=== PATIENT | female | born 1960 | race Caucasian/White ===

== ENCOUNTER 2016-06-16 14:10 | Inpatient (IN) | payer MEDICAID ==
[~2016-06-16] VITALS: Ht 165.1 cm; Wt 52.2 kg
[~2016-06-16 14:10] MED LIST: CARI-277 PO; GABA250S2 PO; LORA1SOL PO; LOS50T PO; METO50TA7 PO; MORP1CAP31 PO; NOR10T PO; ONDA4TAB5 PO; SERT-274 PO; SUMA1SPR2 PO
[2016-06-16 14:44] LABS: Basophils # (auto) 0 uL; Eosinophils # (auto) 0 uL; Hematocrit 50.8 % (36.0-46.0); Hemoglobin 16.8 g/dL (12.2-16.2); Lymphocytes # (auto) 0.6 uL; Lymphocytes % (auto) 6.9 % (10.0-50.0); Mean Corpuscular Hemoglobin 30.9 pg (28.0-32.0); Mean Corpuscular Volume 93.8 fL (80.0-100.0); Monocytes # (auto) 0 uL; Monocytes % (auto) 0.4 % (0.0-12.0); Neutrophils # (auto) 8.6 uL; Neutrophils % (auto) 92.7 % (37.0-80.0); Platelet Count (auto) 364 10^3/uL (140-450); Red Cell Distribution Width 12.8 % (11.6-16.0); White Blood Cell 9.3 10^3/uL (4.4-10.8)
[2016-06-16 15:06] LABS: Albumin 4.3 g/dL (3.4-5.0); BUN/Creatinine Ratio 11.8; Bilirubin, Total 0.5 mg/dL (0.2-1.0); Calcium 9.6 mg/dL (8.5-10.1); Total Protein 7.9 g/dL (6.4-8.2)
[2016-06-16] MEDS ORDERED: ONDANSETRON HCL 4 MG/2 ML VIAL IV ONE ×2 (20:00→23:15)
[2016-06-16] MEDS ORDERED: KETOROLAC TROMETH 30 MG/ML 1ML VIAL IV ONE (20:00)
[2016-06-16] MEDS ORDERED: SODIUM CHLORIDE 0.9% 1,000 ML IV ONE (20:00)
[2016-06-16] MEDS ORDERED: SODIUM CHLORIDE 0.9% 1,000 ML IVB ONE (20:15)
[2016-06-16 20:50] LABS: Magnesium 2.1 mg/dL (1.6-2.6)
[2016-06-16 20:53] LABS: INR 1.07 (0.9-1.15); Partial Thromboplastin Time 25.4 sec (22.64-33.71)
[2016-06-16] MEDS ORDERED: MORPHINE SULF INJ 2 MG/ML SYRINGE 1ML IV ONE (21:30)
[2016-06-16] MEDS ORDERED: PROMETHAZINE HCL 25 MG/ML 1ML IV ONE (21:30)
[2016-06-16] MEDS ORDERED: LABETALOL HCL 5 MG/ML 4ML SYRINGE IV ONE (21:45)
[2016-06-16 23:05] LABS: Urine Bilirubin Negative (Negative); Urine Color Colorless (Yellow); Urine Glucose TRACE mg/dL (Normal); Urine Hyaline Cast FEW /lpf (0 - 2); Urine Ketone Negative (Negative); Urine Nitrite Negative (Negative); Urine RBC 11 /hpf (0 - 4); Urine Urobilinogen Normal (Negative)
[2016-06-16 23:07] LABS: Urine Blood 2+ /uL (Negative)
[2016-06-16] MEDS ORDERED: HYDROmorphone HCL 2 MG/ML VL IV ONE (23:15)
[2016-06-16] MEDS ORDERED: NITROGLYCERIN 0.4 MG SL TAB SL PRN (23:30)
[2016-06-16] MEDS ORDERED: MORPHINE SULF INJ 2 MG/ML SYRINGE 1ML IV PRN (23:30)
[2016-06-17] MEDS: cloNIDine HCL 0.1 MG TAB PO PRN
[2016-06-17 00:30] VITALS: BP 165/83
[2016-06-17] MEDS: FAMOTIDINE (10MG/ML) 2ML VL IV SCH ×3 (01:39→23:56)
[2016-06-17] MEDS: SODIUM CHLORIDE 0.9% 1,000 ML IV SCH ×4 (01:48→23:56)
[2016-06-17] MEDS: ONDANSETRON HCL 4 MG/2 ML VIAL IV PRN ×5 (03:24→20:32)
[2016-06-17] MEDS: MORPHINE SULF INJ 2 MG/ML SYRINGE 1ML IV PRN ×5 (03:24→20:33)
[2016-06-17] MEDS ORDERED: LOPERAMIDE HCL 2 MG CAP PO ONE (04:00)
[2016-06-17 05:05] VITALS: BP 126/74
[2016-06-17] MEDS: GABAPENTIN 300 MG CAP PO SCH ×3 (06:03→22:18)
[2016-06-17 06:19] LABS: Basophils # (auto) 0 uL; Basophils % (auto) 0.4 % (0.0-2.0); Eosinophils # (auto) 0 uL; Hematocrit 41.3 % (36.0-46.0); Hemoglobin 13.8 g/dL (12.2-16.2); Lymphocytes # (auto) 1.4 uL; Lymphocytes % (auto) 13.1 % (10.0-50.0); Mean Corpuscular Hemoglobin 31.4 pg (28.0-32.0); Mean Corpuscular Hgb Conc. 33.4 g/dL (32.0-36.0); Mean Corpuscular Volume 93.8 fL (80.0-100.0); Mean Platelet Volume 7.2 fL (7.4-10.4); Monocytes # (auto) 0.6 uL; Monocytes % (auto) 5.7 % (0.0-12.0); Neutrophils # (auto) 8.5 uL; Neutrophils % (auto) 80.8 % (37.0-80.0); Platelet Count (auto) 290 10^3/uL (140-450); Red Cell Distribution Width 12.6 % (11.6-16.0); White Blood Cell 10.5 10^3/uL (4.4-10.8)
[2016-06-17 06:42] LABS: Albumin 3.5 g/dL (3.4-5.0); BUN/Creatinine Ratio 13.5; Bilirubin, Total 0.5 mg/dL (0.2-1.0); Calcium 8.1 mg/dL (8.5-10.1); Potassium 3.5 mmol/L (3.5-5.1); Total Protein 6.5 g/dL (6.4-8.2)
[2016-06-17] MEDS ORDERED: SERT-160 PO (07:38)
[2016-06-17] MEDS ORDERED: LOSA100T27 PO ×2 (07:38→07:59)
[2016-06-17] MEDS ORDERED: PHEN95TA12 PO (07:51)
[2016-06-17] MEDS ORDERED: DIME50TA49 PO (07:51)
[2016-06-17] MEDS ORDERED: ALPR0.5T7 PO (07:59)
[2016-06-17] MEDS ORDERED: OMEP20CA5 OR (07:59)
[2016-06-17] MEDS ORDERED: MORP30TA PO (07:59)
[2016-06-17] MEDS ORDERED: PERCOT PO (07:59)
[2016-06-17] MEDS: LOPERAMIDE HCL 2 MG CAP PO PRN (08:13)
[2016-06-17 09:00] VITALS: BP 155/90
[2016-06-17] MEDS: SERTRALINE HCL 50 MG TAB PO SCH (09:59)
[2016-06-17] MEDS: METOPROLOL SUCCINATE XL 50 MG TAB PO SCH (10:00)
[2016-06-17] MEDS: LOSARTAN POTASSIUM 50 MG TAB PO SCH (10:00)
[2016-06-17] MEDS: ENOXAPARIN SOD 40 MG/0.4 ML SYRINGE SC SCH (10:01)
[2016-06-17 13:00] VITALS: BP 135/85
[2016-06-17] MEDS: metroNIDAZOLE 500 MG TAB PO SCH ×2 (13:42→22:18)
[2016-06-17 17:00] VITALS: BP 142/89
[2016-06-17 21:51] VITALS: BP 146/97
[2016-06-17] MEDS: ZOLPIDEM TARTRATE 5 MG TAB PO PRN (22:19)
[2016-06-18] MEDS: MORPHINE SULF INJ 2 MG/ML SYRINGE 1ML IV PRN ×5 (02:00→20:54)
[2016-06-18] MEDS: ONDANSETRON HCL 4 MG/2 ML VIAL IV PRN ×5 (02:00→20:54)
[2016-06-18 05:00] VITALS: BP_SYST 127; BP_SYST 135; BP_DIAS 71; BP_DIAS 88
[2016-06-18] MEDS: GABAPENTIN 300 MG CAP PO SCH ×3 (06:10→22:06)
[2016-06-18] MEDS: metroNIDAZOLE 500 MG TAB PO SCH ×3 (06:10→22:06)
[2016-06-18] MEDS: SODIUM CHLORIDE 0.9% 1,000 ML IV SCH ×3 (07:24→23:33)
[2016-06-18 08:33] LABS: Basophils # (auto) 0 uL; Basophils % (auto) 0.5 % (0.0-2.0); Eosinophils # (auto) 0 uL; Eosinophils % (auto) 0.7 % (0.0-7.0); Hematocrit 39.6 % (36.0-46.0); Hemoglobin 13.1 g/dL (12.2-16.2); Lymphocytes # (auto) 1.8 uL; Lymphocytes % (auto) 25.4 % (10.0-50.0); Mean Corpuscular Hgb Conc. 32.9 g/dL (32.0-36.0); Mean Corpuscular Volume 94.2 fL (80.0-100.0); Mean Platelet Volume 7.1 fL (7.4-10.4); Monocytes # (auto) 0.5 uL; Monocytes % (auto) 6.6 % (0.0-12.0); Neutrophils # (auto) 4.7 uL; Neutrophils % (auto) 66.8 % (37.0-80.0); Platelet Count (auto) 242 10^3/uL (140-450); Red Cell Distribution Width 13.1 % (11.6-16.0); White Blood Cell 7.1 10^3/uL (4.4-10.8)
[2016-06-18 08:43] LABS: Potassium 3.2 mmol/L (3.5-5.1)
[2016-06-18 08:47] LABS: BUN/Creatinine Ratio 10.6; Calcium 7.8 mg/dL (8.5-10.1); Magnesium 1.7 mg/dL (1.6-2.6)
[2016-06-18 08:57] LABS: INR 1.17 (0.9-1.15)
[2016-06-18 09:00] VITALS: BP 150/100
[2016-06-18] MEDS: METOPROLOL SUCCINATE XL 50 MG TAB PO SCH (09:08)
[2016-06-18] MEDS: LOPERAMIDE HCL 2 MG CAP PO PRN ×2 (09:08→16:01)
[2016-06-18] MEDS: SERTRALINE HCL 50 MG TAB PO SCH (09:09)
[2016-06-18] MEDS: ENOXAPARIN SOD 40 MG/0.4 ML SYRINGE SC SCH (09:09)
[2016-06-18] MEDS: LOSARTAN POTASSIUM 50 MG TAB PO SCH (09:09)
[2016-06-18] MEDS ORDERED: POTASSIUM CHLORIDE 8 MEQ TAB PO ONE (12:15)
[2016-06-18] MEDS ORDERED: DEXTROSE (50%) 50ML SYRG IV PRN (12:15)
[2016-06-18 13:00] VITALS: BP 164/98
[2016-06-18] MEDS: FAMOTIDINE (10MG/ML) 2ML VL IV SCH ×2 (15:57→23:30)
[2016-06-18 17:00] VITALS: BP 169/100
[2016-06-18] MEDS: ACCU-CHEK COMFORT CURVE STRIP VI SCH ×2 (17:00→22:00)
[2016-06-18] MEDS: InsuLIN REG 1unit/0.01ml Soln (100units/ml) SC SCH ×2 (17:00→22:00)
[2016-06-18] MEDS: cloNIDine HCL 0.1 MG TAB PO PRN (17:45)
[2016-06-18 21:50] VITALS: BP 151/98
[2016-06-18] MEDS ORDERED: LOPERAMIDE HCL 2 MG CAP PO PRN (22:00)
[2016-06-18] MEDS: ZOLPIDEM TARTRATE 5 MG TAB PO PRN (22:06)
[2016-06-19] MEDS: MORPHINE SULF INJ 2 MG/ML SYRINGE 1ML IV PRN ×5 (04:03→23:31)
[2016-06-19] MEDS: ONDANSETRON HCL 4 MG/2 ML VIAL IV PRN ×5 (04:03→23:31)
[2016-06-19 04:51] VITALS: BP 165/102
[2016-06-19] MEDS: cloNIDine HCL 0.1 MG TAB PO PRN ×2 (05:00→16:29)
[2016-06-19] MEDS: metroNIDAZOLE 500 MG TAB PO SCH ×3 (06:04→21:38)
[2016-06-19] MEDS: GABAPENTIN 300 MG CAP PO SCH ×3 (06:04→21:38)
[2016-06-19] MEDS: ACCU-CHEK COMFORT CURVE STRIP VI SCH ×2 (06:41→11:30)
[2016-06-19] MEDS: InsuLIN REG 1unit/0.01ml Soln (100units/ml) SC SCH ×2 (06:41→11:30)
[2016-06-19 07:20] LABS: Basophils # (auto) 0 uL; Basophils % (auto) 0.8 % (0.0-2.0); Eosinophils # (auto) 0.1 uL; Eosinophils % (auto) 1.3 % (0.0-7.0); Hematocrit 35.5 % (36.0-46.0); Hemoglobin 11.8 g/dL (12.2-16.2); Lymphocytes # (auto) 1.8 uL; Lymphocytes % (auto) 32.5 % (10.0-50.0); Mean Corpuscular Hemoglobin 31.1 pg (28.0-32.0); Mean Corpuscular Hgb Conc. 33.1 g/dL (32.0-36.0); Mean Corpuscular Volume 94.1 fL (80.0-100.0); Mean Platelet Volume 6.7 fL (7.4-10.4); Monocytes # (auto) 0.4 uL; Monocytes % (auto) 7.7 % (0.0-12.0); Neutrophils # (auto) 3.1 uL; Neutrophils % (auto) 57.7 % (37.0-80.0); Platelet Count (auto) 235 10^3/uL (140-450); Red Cell Distribution Width 12.9 % (11.6-16.0); White Blood Cell 5.4 10^3/uL (4.4-10.8)
[2016-06-19 07:26] LABS: Albumin 2.9 g/dL (3.4-5.0); BUN/Creatinine Ratio 7.5; Calcium 7.6 mg/dL (8.5-10.1)
[2016-06-19 07:29] LABS: Bilirubin, Total 0.6 mg/dL (0.2-1.0); Total Protein 5.5 g/dL (6.4-8.2)
[2016-06-19] MEDS: SODIUM CHLORIDE 0.9% 1,000 ML IV SCH (08:37)
[2016-06-19] MEDS: HYDROcodone-ACET 5/325MG TAB PO PRN ×2 (08:37→16:29)
[2016-06-19 09:00] VITALS: BP 149/89
[2016-06-19] MEDS: ENOXAPARIN SOD 40 MG/0.4 ML SYRINGE SC SCH (10:02)
[2016-06-19] MEDS: SERTRALINE HCL 50 MG TAB PO SCH (10:03)
[2016-06-19] MEDS: METOPROLOL SUCCINATE XL 50 MG TAB PO SCH (10:07)
[2016-06-19] MEDS: LOSARTAN POTASSIUM 50 MG TAB PO SCH (10:08)
[2016-06-19 13:00] VITALS: BP 140/89
[2016-06-19] MEDS ORDERED: POTASSIUM CHL 20MEQ/100ML 100 ML IV ONE (13:00)
[2016-06-19] MEDS ORDERED: PANTOPRAZOLE SODIUM 40 MG/10 ML VIAL IV ONE (13:00)
[2016-06-19] MEDS: SOD CHL 0.9%/ KCL 20MEQ 1,000 ML IV SCH ×2 (16:27→21:20)
[2016-06-19 17:00] VITALS: BP 188/103
[2016-06-19 18:48] LABS: Hematocrit 41.7 % (36.0-46.0); Hemoglobin 13.7 g/dL (12.2-16.2)
[2016-06-19] MEDS: ZOLPIDEM TARTRATE 5 MG TAB PO PRN (20:11)
[2016-06-19 22:00] VITALS: BP 153/93
[2016-06-20 00:57] LABS: Hemoglobin 12.6 g/dL (12.2-16.2)
[2016-06-20] MEDS: ONDANSETRON HCL 4 MG/2 ML VIAL IV PRN ×4 (04:25→18:15)
[2016-06-20] MEDS: MORPHINE SULF INJ 2 MG/ML SYRINGE 1ML IV PRN ×5 (04:25→23:48)
[2016-06-20 05:00] VITALS: BP 160/118
[2016-06-20] MEDS: SOD CHL 0.9%/ KCL 20MEQ 1,000 ML IV SCH (05:40)
[2016-06-20 05:56] LABS: Basophils # (auto) 0 uL; Basophils % (auto) 0.7 % (0.0-2.0); Eosinophils # (auto) 0.1 uL; Eosinophils % (auto) 2.3 % (0.0-7.0); Hematocrit 38.5 % (36.0-46.0); Hemoglobin 12.8 g/dL (12.2-16.2); Lymphocytes # (auto) 1.9 uL; Lymphocytes % (auto) 30.9 % (10.0-50.0); Mean Corpuscular Hemoglobin 31.3 pg (28.0-32.0); Mean Corpuscular Hgb Conc. 33.2 g/dL (32.0-36.0); Mean Corpuscular Volume 94.2 fL (80.0-100.0); Mean Platelet Volume 7.3 fL (7.4-10.4); Monocytes # (auto) 0.5 uL; Monocytes % (auto) 7.6 % (0.0-12.0); Neutrophils # (auto) 3.6 uL; Neutrophils % (auto) 58.5 % (37.0-80.0); Platelet Count (auto) 229 10^3/uL (140-450); Red Cell Distribution Width 12.8 % (11.6-16.0); White Blood Cell 6.2 10^3/uL (4.4-10.8)
[2016-06-20 05:58] LABS: Albumin 3.4 g/dL (3.4-5.0); Calcium 8.2 mg/dL (8.5-10.1); Potassium 3.1 mmol/L (3.5-5.1)
[2016-06-20] MEDS: metroNIDAZOLE 500 MG TAB PO SCH ×3 (05:59→21:43)
[2016-06-20] MEDS: GABAPENTIN 300 MG CAP PO SCH ×3 (05:59→21:43)
[2016-06-20 06:00] LABS: BUN/Creatinine Ratio 10.4
[2016-06-20] MEDS: cloNIDine HCL 0.1 MG TAB PO PRN (06:01)
[2016-06-20 06:03] LABS: Bilirubin, Total 0.5 mg/dL (0.2-1.0); Total Protein 6.1 g/dL (6.4-8.2)
[2016-06-20 08:22] VITALS: BP 154/93
[2016-06-20] MEDS: SERTRALINE HCL 50 MG TAB PO SCH (08:37)
[2016-06-20] MEDS: LOSARTAN POTASSIUM 50 MG TAB PO SCH (08:38)
[2016-06-20] MEDS: METOPROLOL SUCCINATE XL 50 MG TAB PO SCH (08:38)
[2016-06-20] MEDS ORDERED: PANTOPRAZOLE SODIUM 40 MG/10 ML VIAL IV SCH (10:00)
[2016-06-20] MEDS: HYDROcodone-ACET 5/325MG TAB PO PRN (11:01)
[2016-06-20] MEDS: POTASSIUM CHL 20MEQ/100ML 100 ML IV SCH ×3 (13:15→15:33)
[2016-06-20 14:10] VITALS: BP 162/98
[2016-06-20 17:00] VITALS: BP 178/98
[2016-06-20] MEDS ORDERED: POTASSIUM CHL 20 Meq TABLET PO ONE ×2 (17:30→17:45)
[2016-06-20] MEDS: VANCOMYCIN HCL 125MG/5ML ORAL SOL PO SCH ×2 (18:00→21:42)
[2016-06-20] MEDS: ZOLPIDEM TARTRATE 5 MG TAB PO PRN (21:43)
[2016-06-20 22:00] VITALS: BP 142/92
[2016-06-21] MEDS: MORPHINE SULF INJ 2 MG/ML SYRINGE 1ML IV PRN (04:32)
[2016-06-21 05:30] VITALS: BP 170/97
[2016-06-21] MEDS: GABAPENTIN 300 MG CAP PO SCH (05:47)
[2016-06-21] MEDS: metroNIDAZOLE 500 MG TAB PO SCH (05:47)
[2016-06-21] MEDS: VANCOMYCIN HCL 125MG/5ML ORAL SOL PO SCH (05:47)
[2016-06-21] MEDS: cloNIDine HCL 0.1 MG TAB PO PRN (06:19)
[2016-06-21 07:43] LABS: Potassium 3.2 mmol/L (3.5-5.1)
[2016-06-21 09:00] VITALS: BP 159/99
[2016-06-21] MEDS ORDERED: POTASSIUM CHL 20 Meq TABLET PO SCH (11:30)
[2016-06-21 11:32] VITALS: BP 170/97
[2016-06-21 13:00] VITALS: BP 143/94
== END 2016-06-21 13:25 | disposition home or self-care (01) | DRG 248 ==
LOC: EDBD 14:10 → ER 14:17 → WEST WING 14:18
PROVIDERS: ADMIT Family Medicine; ATTEND Internal Medicine Pulmonary Disease
DX: A04.7 Enterocolitis due to Clostridium difficile (principal); E11.21 Type 2 diabetes mellitus with diabetic nephropathy; E11.42 Type 2 diabetes mellitus with diabetic polyneuropathy; K56.7 Ileus, unspecified; E86.0 Dehydration; E11.22 Type 2 diabetes mellitus with diabetic chronic kidney disease; I12.9 Hypertensive chronic kidney disease with stage 1 through stage 4 chronic kidney disease, or unspecified chronic kidney disease; E87.6 Hypokalemia; N18.2 Chronic kidney disease, stage 2 (mild); M54.5 Low back pain; F17.210 Nicotine dependence, cigarettes, uncomplicated; F32.9 Major depressive disorder, single episode, unspecified; D64.9 Anemia, unspecified; Z90.710 Acquired absence of both cervix and uterus; Z85.820 Personal history of malignant melanoma of skin
CPT/HCPCS: 36415; 71010; 74176; 80048; 80051; 80053; 81001; 82150; 82270; 82378; 83036; 83690; 83735; 84484; 85014; 85018; 85025; 85045; 85610; 85652; 85730; 86141; 86850; 86900; 86901; 87086; 87493; 93005; 96361; 96374; 96375; 96376; C9113; J1885; J2405; J3480; J3490

== ENCOUNTER 2016-10-05 18:25 | Inpatient (IN) | payer MEDICAID ==
[~2016-10-05] VITALS: Ht 170.2 cm; Wt 47.0 kg
[~2016-10-05 18:25] MED LIST changes: +ALPR0.5T7 PO; +DIME50TA49 PO; -LOS50T PO; +LOSA100T27 PO; +MORP30TA PO; +OMEP20CA5 OR; +PERCOT PO; +PHEN95TA12 PO; +SERT-160 PO; -SERT-274 PO
[2016-10-05 19:48] LABS: Basophils # (auto) 0 uL; Basophils % (auto) 0.2 % (0.0-2.0); Eosinophils # (auto) 0 uL; Hematocrit 52.8 % (36.0-46.0); Hemoglobin 17.3 g/dL (12.2-16.2); Lymphocytes # (auto) 0.5 uL; Lymphocytes % (auto) 7.8 % (10.0-50.0); Mean Corpuscular Hemoglobin 30.5 pg (28.0-32.0); Mean Corpuscular Hgb Conc. 32.7 g/dL (32.0-36.0); Mean Corpuscular Volume 93.2 fL (80.0-100.0); Mean Platelet Volume 7.6 fL (7.4-10.4); Monocytes # (auto) 0.2 uL; Neutrophils # (auto) 6.2 uL; Platelet Count (auto) 350 10^3/uL (140-450); Red Cell Distribution Width 12.8 % (11.6-16.0); White Blood Cell 6.9 10^3/uL (4.4-10.8)
[2016-10-05 20:00] LABS: Albumin 4.3 g/dL (3.4-5.0); Calcium 9.1 mg/dL (8.5-10.1); Magnesium 2.1 mg/dL (1.6-2.6); Potassium 3.5 mmol/L (3.5-5.1)
[2016-10-05 20:08] LABS: Bilirubin, Total 0.5 mg/dL (0.2-1.0); Total Protein 8.7 g/dL (6.4-8.2)
[2016-10-05 20:42] LABS: BUN/Creatinine Ratio 8.5
[2016-10-05] MEDS ORDERED: SODIUM CHLORIDE 0.9% 1,000 ML IVB ONE (20:52)
[2016-10-05] MEDS ORDERED: ONDANSETRON HCL 4 MG/2 ML VIAL IV ONE (21:00)
[2016-10-05] MEDS ORDERED: PANTOPRAZOLE SODIUM 40 MG/10 ML VIAL IV ONE (21:00)
[2016-10-05] MEDS ORDERED: ASPirin 81 mg TAB PO ONE (21:00)
[2016-10-05] MEDS ORDERED: MORPHINE SULFATE 4 MG/ML SYRG IV ONE (21:00)
[2016-10-05] MEDS ORDERED: cloNIDine HCL 0.1 MG TAB PO ONE (21:30)
[2016-10-05 21:40] LABS: Amylase 67 U/L (25-115)
[2016-10-05] MEDS ORDERED: METOCLOPRAMIDE HCL 5MG/ml INJ 2ml VIAL IV ONE (22:15)
[2016-10-05 22:21] LABS: B-Type Natriuretic Peptide 424.84 pg/mL (0-100)
[2016-10-06] MEDS ORDERED: ACETAMINOPHEN 325 MG TAB PO PRN (00:15)
[2016-10-06] MEDS ORDERED: NITROGLYCERIN 0.4 MG SL TAB SL PRN (00:15)
[2016-10-06] MEDS ORDERED: MORPHINE SULF INJ 2 MG/ML SYRINGE 1ML IV PRN (00:15)
[2016-10-06] MEDS: SODIUM CHLORIDE 0.9% 1,000 ML IV SCH ×2 (00:41→16:39)
[2016-10-06] MEDS ORDERED: ENOXAPARIN SOD 60 MG/0.6 ML SYRINGE SC ONE (00:45)
[2016-10-06 01:30] VITALS: BP 174/105
[2016-10-06] MEDS: ONDANSETRON HCL 4 MG/2 ML VIAL IV PRN ×4 (02:34→17:26)
[2016-10-06] MEDS: HYDROcodone-ACET 5/325MG TAB PO PRN ×5 (02:35→20:09)
[2016-10-06 05:02] VITALS: BP 123/92
[2016-10-06 10:09] VITALS: BP 118/75
[2016-10-06] MEDS: ENOXAPARIN SOD 40 MG/0.4 ML SYRINGE SC SCH (11:11)
[2016-10-06] MEDS: SERTRALINE HCL 50 MG TAB PO SCH (11:12)
[2016-10-06] MEDS: ASPirin 81 mg TAB PO SCH (11:14)
[2016-10-06] MEDS: LOSARTAN POTASSIUM 50 MG TAB PO SCH (11:14)
[2016-10-06 13:00] VITALS: BP 122/78
[2016-10-06 16:01] LABS: Urine Bilirubin Negative (Negative); Urine Blood 2+ /uL (Negative); Urine Color Yellow (Yellow); Urine Glucose Normal (Normal); Urine Hyaline Cast MOD /lpf (0 - 2); Urine Ketone TRACE (Negative); Urine Mucus FEW (None Seen); Urine Nitrite Negative (Negative); Urine RBC 22 /hpf (0 - 4); Urine Squamous Epithelial Cell FEW /hpf (<5); Urine Urobilinogen Normal (Negative)
[2016-10-06 16:49] VITALS: BP 115/78
[2016-10-06] MEDS: TEMAZEPAM 15 MG CAP PO PRN (21:42)
[2016-10-06 22:00] VITALS: BP 130/91
[2016-10-07] VITALS (9 sets, daily range): BP systolic 134–179; BP diastolic 82–106
[2016-10-07] MEDS: ONDANSETRON HCL 4 MG/2 ML VIAL IV PRN ×5 (01:09→19:50)
[2016-10-07] MEDS: HYDROcodone-ACET 5/325MG TAB PO PRN ×5 (01:10→20:54)
[2016-10-07 05:51] LABS: Basophils # (auto) 0 uL; Basophils % (auto) 0.5 % (0.0-2.0); Eosinophils # (auto) 0 uL; Eosinophils % (auto) 0.4 % (0.0-7.0); Hemoglobin 15.8 g/dL (12.2-16.2); Lymphocytes # (auto) 2.7 uL; Lymphocytes % (auto) 36.9 % (10.0-50.0); Mean Corpuscular Hemoglobin 30.9 pg (28.0-32.0); Mean Corpuscular Hgb Conc. 32.8 g/dL (32.0-36.0); Mean Platelet Volume 7.4 fL (7.4-10.4); Monocytes # (auto) 0.7 uL; Neutrophils # (auto) 3.8 uL; Neutrophils % (auto) 52.2 % (37.0-80.0); Platelet Count (auto) 280 10^3/uL (140-450); Red Cell Distribution Width 12.9 % (11.6-16.0); White Blood Cell 7.2 10^3/uL (4.4-10.8)
[2016-10-07 06:07] LABS: Albumin 3.4 g/dL (3.4-5.0); Potassium 3.7 mmol/L (3.5-5.1)
[2016-10-07 06:10] LABS: BUN/Creatinine Ratio 19.5; Calcium 8.5 mg/dL (8.5-10.1); Magnesium 2.2 mg/dL (1.6-2.6)
[2016-10-07 06:12] LABS: Bilirubin, Total 0.5 mg/dL (0.2-1.0); Total Protein 6.6 g/dL (6.4-8.2)
[2016-10-07] MEDS ORDERED: ADENOSINE 39 MG in GIVE UN-DILUTED 0 ML IV STA (08:42)
[2016-10-07] MEDS: SODIUM CHLORIDE 0.9% 1,000 ML IV SCH (09:51)
[2016-10-07] MEDS: ASPirin 81 mg TAB PO SCH (09:52)
[2016-10-07] MEDS: ENOXAPARIN SOD 40 MG/0.4 ML SYRINGE SC SCH (09:52)
[2016-10-07] MEDS: SERTRALINE HCL 50 MG TAB PO SCH (09:52)
[2016-10-07] MEDS: LOSARTAN POTASSIUM 50 MG TAB PO SCH (09:53)
[2016-10-07] MEDS ORDERED: PANTOPRAZOLE 40 MG TAB PO ONE (12:15)
[2016-10-07] MEDS ORDERED: METOCLOPRAMIDE HCL 10 MG TAB PO PRN (12:15)
[2016-10-07] MEDS: PROCHLORPERAZINE EDISYLATE 5 MG/ML 2ML VIAL IV PRN ×2 (13:06→18:30)
[2016-10-07] MEDS ORDERED: IOHEXOL 300 MG/ML 100ML BOTTLE IJ ONE (13:43)
[2016-10-07] MEDS: TEMAZEPAM 15 MG CAP PO PRN (22:43)
[2016-10-07] MEDS ORDERED: KETOROLAC TROMETH 30 MG/ML 1ML VIAL IV ONE (22:45)
[2016-10-07] MEDS ORDERED: cloNIDine HCL 0.1 MG TAB PO PRN (22:45)
[2016-10-08] MEDS: SODIUM CHLORIDE 0.9% 1,000 ML IV SCH (03:51)
[2016-10-08] MEDS: ONDANSETRON HCL 4 MG/2 ML VIAL IV PRN ×3 (03:51→13:32)
[2016-10-08] MEDS: HYDROcodone-ACET 5/325MG TAB PO PRN ×3 (03:52→15:03)
[2016-10-08 04:56] VITALS: BP 115/91
[2016-10-08 08:00] VITALS: BP 136/86
[2016-10-08 08:59] VITALS: BP 136/86
[2016-10-08] MEDS: ENOXAPARIN SOD 40 MG/0.4 ML SYRINGE SC SCH (09:46)
[2016-10-08] MEDS: ASPirin 81 mg TAB PO SCH (09:47)
[2016-10-08] MEDS: SERTRALINE HCL 50 MG TAB PO SCH (09:47)
[2016-10-08] MEDS: LOSARTAN POTASSIUM 50 MG TAB PO SCH (09:48)
[2016-10-08] MEDS ORDERED: PANTOPRAZOLE 40 MG TAB PO SCH (10:00)
[2016-10-08 13:02] VITALS: BP 124/87
[2016-10-08] MEDS ORDERED: ASPI81CH43 PO (14:52)
[2016-10-08 15:20] VITALS: BP 136/86
[2016-10-08] MEDS: PROCHLORPERAZINE EDISYLATE 5 MG/ML 2ML VIAL IV PRN (17:03)
[2016-10-08 17:10] VITALS: BP 116/82
== END 2016-10-08 17:45 | disposition home or self-care (01) | DRG 251 ==
LOC: EDBD 18:25 → ER 18:25 → EDUNIT# 18:26 → TELE 18:26 → TELE-WESTW 10-06 01:06
PROVIDERS: ADMIT Nurse Practitioner; ATTEND Internal Medicine
DX: R10.13 Epigastric pain (principal); K83.8 Other specified diseases of biliary tract; I10 Essential (primary) hypertension; R07.89 Other chest pain; F41.9 Anxiety disorder, unspecified; R11.2 Nausea with vomiting, unspecified; K21.9 Gastro-esophageal reflux disease without esophagitis; G89.4 Chronic pain syndrome; F17.210 Nicotine dependence, cigarettes, uncomplicated; F41.1 Generalized anxiety disorder; I49.1 Atrial premature depolarization; R74.8 Abnormal levels of other serum enzymes; R73.9 Hyperglycemia, unspecified; F12.10 Cannabis abuse, uncomplicated; Z71.89 Other specified counseling; Z71.6 Tobacco abuse counseling; Z98.51 Tubal ligation status
CPT/HCPCS: 36415; 71010; 74177; 80053; 80061; 80307; 81001; 82150; 83036; 83690; 83735; 83880; 84484; 85025; 93005; 93306; 94761; 96361; 96372; 96374; 96375; C9113; J0153; J2405

== ENCOUNTER 2016-10-20 13:43 | Inpatient (IN) | payer MEDICAID ==
[~2016-10-20] VITALS: Ht 170.2 cm; Wt 43.2 kg
[~2016-10-20 13:43] MED LIST changes: +ASPI81CH43 PO
[2016-10-20] MEDS ORDERED: MORPHINE SULF INJ 2 MG/ML SYRINGE 1ML ONE (15:52)
[2016-10-20] MEDS ORDERED: ONDANSETRON HCL 4 MG/2 ML VIAL ONE (15:52)
[2016-10-20] MEDS ORDERED: ONDANSETRON HCL 4 MG/2 ML VIAL IV ONE ×2 (16:15→23:45)
[2016-10-20] MEDS ORDERED: MORPHINE SULF INJ 2 MG/ML SYRINGE 1ML IV ONE (16:15)
[2016-10-20] MEDS ORDERED: cloNIDine HCL 0.1 MG TAB PO ONE (16:30)
[2016-10-20 16:33] LABS: Albumin 3.9 g/dL (3.4-5.0); BUN/Creatinine Ratio 10.5; Bilirubin, Total 0.6 mg/dL (0.2-1.0); Calcium 9.5 mg/dL (8.5-10.1); Magnesium 2.5 mg/dL (1.6-2.6); Potassium 3.8 mmol/L (3.5-5.1); Total Protein 7.6 g/dL (6.4-8.2)
[2016-10-20 16:41] LABS: INR 1.02 (0.9-1.15); Partial Thromboplastin Time 27.1 sec (22.64-33.71)
[2016-10-20 16:49] LABS: Basophils # (auto) 0 uL; Basophils % (auto) 0.6 % (0.0-2.0); Eosinophils # (auto) 0 uL; Eosinophils % (auto) 0.1 % (0.0-7.0); Hematocrit 47.4 % (36.0-46.0); Hemoglobin 15.7 g/dL (12.2-16.2); Lymphocytes # (auto) 1.3 uL; Lymphocytes % (auto) 16.6 % (10.0-50.0); Mean Corpuscular Hemoglobin 30.8 pg (28.0-32.0); Mean Corpuscular Hgb Conc. 33.1 g/dL (32.0-36.0); Mean Corpuscular Volume 93.1 fL (80.0-100.0); Mean Platelet Volume 7.3 fL (7.4-10.4); Monocytes # (auto) 0.2 uL; Monocytes % (auto) 3.2 % (0.0-12.0); Neutrophils # (auto) 6.1 uL; Neutrophils % (auto) 79.5 % (37.0-80.0); Platelet Count (auto) 425 10^3/uL (140-450); Red Cell Distribution Width 12.9 % (11.6-16.0); White Blood Cell 7.7 10^3/uL (4.4-10.8)
[2016-10-20 19:26] LABS: Urine Bilirubin Negative (Negative); Urine Blood TRACE /uL (Negative); Urine Color Yellow (Yellow); Urine Glucose Normal (Normal); Urine Ketone Negative (Negative); Urine Nitrite Negative (Negative); Urine RBC 7 /hpf (0 - 4); Urine Squamous Epithelial Cell FEW /hpf (<5); Urine Urobilinogen Normal (Negative); Urine pH 7.5 (5.0-8.0)
[2016-10-20] MEDS ORDERED: KETOROLAC TROMETH 30 MG/ML 1ML VIAL IV ONE (19:45)
[2016-10-20] MEDS ORDERED: SODIUM CHLORIDE 0.9% 1,000 ML IV ONE (21:45)
[2016-10-20] MEDS ORDERED: MORPHINE SULFATE 4 MG/ML SYRG IV ONE (23:45)
[2016-10-20] MEDS ORDERED: ZOLPIDEM TARTRATE 5 MG TAB PO ONE (23:45)
[2016-10-21] MEDS ORDERED: DOCUSATE SOD 100 MG CAP PO PRN
[2016-10-21] MEDS ORDERED: ACETAMINOPHEN 325 MG TAB PO PRN
[2016-10-21 02:00] VITALS: BP 108/79
[2016-10-21] MEDS: FAMOTIDINE (10MG/ML) 2ML VL IV SCH ×2 (02:13→10:57)
[2016-10-21] MEDS: SODIUM CHLORIDE 0.9% 1,000 ML IV SCH ×2 (02:13→14:13)
[2016-10-21 05:00] VITALS: BP 125/82
[2016-10-21 05:42] LABS: Basophils # (auto) 0.1 uL; Basophils % (auto) 0.7 % (0.0-2.0); Eosinophils # (auto) 0.1 uL; Eosinophils % (auto) 1.6 % (0.0-7.0); Hematocrit 35.7 % (36.0-46.0); Hemoglobin 11.9 g/dL (12.2-16.2); Mean Corpuscular Hemoglobin 31.2 pg (28.0-32.0); Mean Corpuscular Hgb Conc. 33.3 g/dL (32.0-36.0); Mean Corpuscular Volume 93.7 fL (80.0-100.0); Mean Platelet Volume 7.2 fL (7.4-10.4); Monocytes # (auto) 0.5 uL; Monocytes % (auto) 6.3 % (0.0-12.0); Neutrophils # (auto) 3.8 uL; Neutrophils % (auto) 51.4 % (37.0-80.0); Platelet Count (auto) 334 10^3/uL (140-450); Red Cell Distribution Width 13.1 % (11.6-16.0); White Blood Cell 7.4 10^3/uL (4.4-10.8)
[2016-10-21 06:15] LABS: Albumin 2.7 g/dL (3.4-5.0); BUN/Creatinine Ratio 13.4; Bilirubin, Total 0.4 mg/dL (0.2-1.0); Calcium 7.7 mg/dL (8.5-10.1); Potassium 3.6 mmol/L (3.5-5.1); Total Protein 5.3 g/dL (6.4-8.2)
[2016-10-21] MEDS: ONDANSETRON HCL 4 MG/2 ML VIAL IV PRN ×2 (06:44→12:31)
[2016-10-21] MEDS: MORPHINE SULF INJ 2 MG/ML SYRINGE 1ML IV PRN ×2 (06:44→12:32)
[2016-10-21 07:20] LABS: Urine Bilirubin Negative (Negative); Urine Blood Negative /uL (Negative); Urine Color Yellow (Yellow); Urine Glucose Normal (Normal); Urine Ketone Negative (Negative); Urine Nitrite Negative (Negative); Urine RBC 2 /hpf (0 - 4); Urine Squamous Epithelial Cell FEW /hpf (<5); Urine Urobilinogen Normal (Negative)
[2016-10-21 08:00] VITALS: BP 129/86
[2016-10-21 13:00] VITALS: BP 143/93
[2016-10-21 17:00] VITALS: BP 144/96
[2016-10-21] MEDS ORDERED: PANTOPRAZOLE 40 MG TAB PO ONE (17:15)
[2016-10-21] MEDS: TEMAZEPAM 15 MG CAP PO PRN (20:56)
[2016-10-21 21:30] VITALS: BP 167/95
[2016-10-21] MEDS: KETOROLAC TROMETH 30 MG/ML 1ML VIAL IV PRN (22:24)
[2016-10-22] MEDS: ONDANSETRON HCL 4 MG/2 ML VIAL IV PRN ×3 (01:45→17:52)
[2016-10-22 05:00] VITALS: BP 150/97
[2016-10-22] MEDS ORDERED: PANTOPRAZOLE 40 MG TAB PO SCH (10:00)
[2016-10-22] MEDS: PANTOPRAZOLE 40 MG TAB PO SCH ×2 (11:16→20:40)
[2016-10-22] MEDS: KETOROLAC TROMETH 30 MG/ML 1ML VIAL IV PRN ×2 (11:17→20:39)
[2016-10-22 12:21] VITALS: BP 165/95
[2016-10-22 14:57] VITALS: BP 165/95
[2016-10-22 16:56] VITALS: BP 184/107
[2016-10-22] MEDS ORDERED: LOSARTAN POTASSIUM 50 MG TAB PO ONE (17:30)
[2016-10-22] MEDS ORDERED: cloNIDine HCL 0.1 MG TAB PO PRN (17:30)
[2016-10-22] MEDS: TEMAZEPAM 15 MG CAP PO PRN (20:40)
[2016-10-22 22:00] VITALS: BP 152/111
[2016-10-23 05:00] VITALS: BP 155/113
[2016-10-23] MEDS: KETOROLAC TROMETH 30 MG/ML 1ML VIAL IV PRN ×2 (07:21→15:03)
[2016-10-23] MEDS: ONDANSETRON HCL 4 MG/2 ML VIAL IV PRN ×2 (07:21→15:03)
[2016-10-23 09:00] VITALS: BP 160/96
[2016-10-23] MEDS: PANTOPRAZOLE 40 MG TAB PO SCH (10:34)
[2016-10-23 13:00] VITALS: BP 124/92
[2016-10-23 15:42] VITALS: BP 160/96
[2016-10-23 16:25] VITALS: BP 124/92
== END 2016-10-23 17:43 | disposition home or self-care (01) | DRG 241 ==
LOC: ER 13:43 → EDBD 13:43 → TELE-EAST 13:44 → EDUNIT# 13:44 → EAST 10-21 16:49
PROVIDERS: ADMIT Emergency Medicine; ATTEND Internal Medicine
DX: K29.70 Gastritis, unspecified, without bleeding (principal); F11.20 Opioid dependence, uncomplicated; I10 Essential (primary) hypertension; F12.10 Cannabis abuse, uncomplicated; F17.210 Nicotine dependence, cigarettes, uncomplicated; K21.9 Gastro-esophageal reflux disease without esophagitis; G89.4 Chronic pain syndrome; N28.1 Cyst of kidney, acquired; T40.605A Adverse effect of unspecified narcotics, initial encounter
CPT/HCPCS: 36415; 71010; 76856; 80053; 80307; 81001; 82150; 83690; 83735; 85025; 85048; 85610; 85730; 87045; 87081; 87493; 87899; 93005; 96361; 96374; 96375; 96376; J1885; J2405; J3490

== ENCOUNTER 2017-04-02 12:12 | Emergency (ER) | payer MEDICAID ==
[~2017-04-02] VITALS: Ht 160 cm; Wt 90.7 kg
[~2017-04-02 12:12] MED LIST changes: +ALBU18 IN; -ALPR0.5T7 PO; -ASPI81CH43 PO; +ASPI81TA27 PO; -CARI-277 PO; +CHL4PW PO; -DIME50TA49 PO; +FAM20T PO; +GABA-497 PO; -GABA250S2 PO; +LORA-622 PO; -LORA1SOL PO; -METO50TA7 PO; -MORP30TA PO; -NOR10T PO; -OMEP20CA5 OR; +OMEP20CA74 PO; -ONDA4TAB5 PO; -PHEN95TA12 PO; -SERT-160 PO; +TRIA0.5O2 TOP; +ZOLP10TA PO
[2017-04-02] MEDS ORDERED: cloNIDine HCL 0.1 MG TAB ONE (12:40)
[2017-04-02] MEDS ORDERED: ONDANSETRON HCL 4 MG/2 ML VIAL ONE (12:42)
[2017-04-02] MEDS ORDERED: ONDANSETRON HCL 4 MG/2 ML VIAL IV ONE ×2 (13:00→21:30)
[2017-04-02] MEDS ORDERED: cloNIDine HCL 0.1 MG TAB PO ONE (13:00)
[2017-04-02 13:23] LABS: Basophils # (auto) 0 uL; Basophils % (auto) 0.4 % (0.0-2.0); Eosinophils # (auto) 0 uL; Eosinophils % (auto) 0.1 % (0.0-7.0); Lymphocytes # (auto) 1.1 uL; Lymphocytes % (auto) 10.6 % (10.0-50.0); Mean Corpuscular Hemoglobin 31.5 pg (28.0-32.0); Mean Corpuscular Hgb Conc. 33.4 g/dL (32.0-36.0); Mean Corpuscular Volume 94.3 fL (80.0-100.0); Mean Platelet Volume 6.5 fL (6.9-10.8); Monocytes # (auto) 0.2 uL; Monocytes % (auto) 1.8 % (0.0-12.0); Neutrophils # (auto) 8.7 uL; Neutrophils % (auto) 87.1 % (37.0-80.0); Platelet Count (auto) 322 10^3/uL (140-450); Red Cell Distribution Width 13.2 % (11.8-14.3)
[2017-04-02 13:45] LABS: Albumin 4.4 g/dL (3.4-5.0); Alkaline Phosphatase 71 U/L (45-117); Anion Gap 9 (5-15); Aspartate Aminotransferase 14 U/L (15-37); BUN/Creatinine Ratio 11.8; Bilirubin, Total 0.5 mg/dL (0.2-1.0); Blood Urea Nitrogen 9 mg/dL (7-18); Calcium 9.1 mg/dL (8.5-10.1); Carbon Dioxide 25 mmol/L (21-32); Chloride 108 mmol/L (98-107); GFR African American 101 mL/min; GFR Non-African American 84 mL/min; Glucose 128 mg/dL (74-106); Magnesium 2.2 mg/dL (1.6-2.6); Potassium 3.6 mmol/L (3.5-5.1); Sodium 142 mmol/L (136-145); Total Protein 8.1 g/dL (6.4-8.2)
[2017-04-02] MEDS ORDERED: SODIUM CHLORIDE 0.9% 1,000 ML IVB ONE (16:38)
[2017-04-02] MEDS ORDERED: LABETALOL HCL 5 MG/ML 4ML SYRINGE IV ONE (16:45)
[2017-04-02] MEDS ORDERED: KETOROLAC TROMETH 30 MG/ML 1ML VIAL IV ONE (16:45)
[2017-04-02] MEDS ORDERED: PANTOPRAZOLE 40 MG TAB PO ONE (16:45)
[2017-04-02] MEDS: PROMETHAZINE HCL 25 MG/ML 1ML IV PRN ×2 (17:00→21:06)
[2017-04-02] MEDS ORDERED: hydrALAZINE HCL 20 MG/ML VL IV ONE (17:45)
[2017-04-02 20:54] LABS: Urine Bilirubin Negative (Negative); Urine Blood 1+ /uL (Negative); Urine Color Yellow (Yellow); Urine Glucose Normal (Normal); Urine Ketone Negative (Negative); Urine Nitrite Negative (Negative); Urine RBC 11 /hpf (0 - 4); Urine Squamous Epithelial Cell FEW /hpf (<5); Urine Urobilinogen Normal (Negative); Urine pH 6.5 (5.0-8.0)
[2017-04-02] MEDS ORDERED: HYDROmorphone HCL 2 MG/ML VL IV ONE (21:30)
[2017-04-03 01:05] VITALS: BP 168/87
== END 2017-04-03 01:08 | disposition home or self-care (01) ==
LOC: EDBD 12:12 → ER 12:12
DX: E86.0 Dehydration (principal); R53.1 Weakness; I10 Essential (primary) hypertension; J45.909 Unspecified asthma, uncomplicated; K21.9 Gastro-esophageal reflux disease without esophagitis; Z90.710 Acquired absence of both cervix and uterus; F17.210 Nicotine dependence, cigarettes, uncomplicated; Z79.899 Other long term (current) drug therapy
CPT/HCPCS: 36415; 80053; 81001; 83690; 83735; 84443; 84484; 85025; 93005; 94761; 96361; 96374; 96375; 96376; 99285; J0360; J1170; J1885; J2405; J2550

== ENCOUNTER 2017-11-18 07:40 | Inpatient (IN) | payer MEDICAID ==
[~2017-11-18] VITALS: Ht 160 cm; Wt 68.2 kg
[~2017-11-18 07:40] MED LIST changes: -GABA-497 PO; +GABA300C10 PO
[2017-11-18] MEDS ORDERED: SODIUM CHLORIDE 0.9% 1,000 ML IV ONE (07:57)
[2017-11-18] MEDS ORDERED: IPRATROPIUM BROM 0.5 MG/2.5ML INH SOL NEB ONE (08:00)
[2017-11-18] MEDS ORDERED: methylPREDNISolone SOD SUCC 125 MG/2 ML VL IV ONE (08:00)
[2017-11-18] MEDS ORDERED: ALBUTEROL SULF 2.5 MG/0.5ML(0.5%) NEB SOLN NEB ONE (08:00)
[2017-11-18] MEDS ORDERED: ASPirin 81 mg TAB PO ONE (08:00)
[2017-11-18 08:36] LABS: Basophils # (auto) 0.1 uL; Eosinophils # (auto) 0 uL; Hematocrit 44.3 % (36.0-46.0); Lymphocytes # (auto) 1.3 uL
[2017-11-18 08:38] LABS: Basophils % (auto) 0.6 % (0.0-2.0); Eosinophils % (auto) 0.3 % (0.0-7.0); Lymphocytes % (auto) 11.2 % (10.0-50.0); Mean Corpuscular Hemoglobin 30.7 pg (28.0-32.0); Mean Corpuscular Hgb Conc. 33.8 g/dL (32.0-36.0); Mean Corpuscular Volume 90.8 fL (80.0-100.0); Monocytes # (auto) 0.7 uL; Monocytes % (auto) 6.1 % (0.0-12.0); Neutrophils # (auto) 9.8 uL; Neutrophils % (auto) 81.8 % (37.0-80.0); Platelet Count (auto) 501 10^3/uL (140-450); Red Blood Cells 4.88 10^6/uL (4.0-5.20); Red Cell Distribution Width 13.8 % (11.8-14.3); White Blood Cell 11.9 10^3/uL (4.4-10.8)
[2017-11-18 08:54] LABS: INR 1.21 (0.9-1.15); Partial Thromboplastin Time 35.7 sec (23.78-33.04); Prothrombin Time 12.8 sec (9.27-12.13)
[2017-11-18 08:58] LABS: Alanine Aminotransferase 12 U/L (13-56); Albumin 3.2 g/dL (3.4-5.0); Alkaline Phosphatase 98 U/L (45-117); Anion Gap 9 (5-15); Aspartate Aminotransferase 33 U/L (15-37); BUN/Creatinine Ratio 20.2; Bilirubin, Total 0.4 mg/dL (0.2-1.0); Blood Urea Nitrogen 18 mg/dL (7-18); Calcium 9.4 mg/dL (8.5-10.1); Carbon Dioxide 26 mmol/L (21-32); Chloride 103 mmol/L (98-107); GFR African American 84 mL/min; GFR Non-African American 69 mL/min; Glucose 124 mg/dL (74-106); Potassium 3.7 mmol/L (3.5-5.1); Sodium 138 mmol/L (136-145); Total Protein 8.1 g/dL (6.4-8.2)
[2017-11-18 09:34] LABS: Urine Bacteria FEW /hpf (None Seen); Urine Blood 2+ /uL (Negative); Urine Mucus FEW (None Seen); Urine Specific Gravity 1.027 (1.001-1.035); Urine WBC 8 /hpf (0 - 5)
[2017-11-18] MEDS ORDERED: KETOROLAC TROMETH 30 MG/ML 1ML VIAL IV ONE (10:15)
[2017-11-18] MEDS ORDERED: cefTRIAXone 1GM/10ml IVPUSH 10 ML IV ONE (11:00)
[2017-11-18] MEDS ORDERED: MORPHINE SULFATE 8mg/ml INJ SDV IV PRN (11:45)
[2017-11-18] MEDS ORDERED: ACETAMINOPHEN 325 MG TAB PO PRN (11:45)
[2017-11-18] MEDS ORDERED: NITROGLYCERIN 0.4 MG SL TAB SL PRN (11:45)
[2017-11-18] MEDS ORDERED: IOHEXOL 300 MG/ML 100ML BOTTLE IJ ONE (11:47)
[2017-11-18] MEDS ORDERED: diphenhdrAMINE HCL 25 MG CAP PO SCH (12:30)
[2017-11-18] MEDS: methylPREDNISolone SOD SUCC 40 MG/ML VL IV SCH ×3 (12:41→23:52)
[2017-11-18 13:24] VITALS: BP 167/110
[2017-11-18 13:57] VITALS: BP 167/110
[2017-11-18] MEDS: ALBUTEROL SULF 2.5 MG/0.5ML(0.5%) NEB SOLN NEB SCH ×2 (14:33→23:17)
[2017-11-18] MEDS: IPRATROPIUM BROM 0.5 MG/2.5ML INH SOL NEB SCH ×2 (14:34→23:17)
[2017-11-18] MEDS: BOOST PLUS 8 ounce PO SCH ×2 (14:47→17:28)
[2017-11-18] MEDS: GABAPENTIN 300 MG CAP PO SCH ×2 (14:47→22:06)
[2017-11-18] MEDS: SODIUM CHLOR 0.9% PF (SALINE LOCK) 10ML VIAL/SYR IV SCH ×2 (14:47→22:05)
[2017-11-18] MEDS ORDERED: HYDR50TA69 PO (17:26)
[2017-11-18] MEDS ORDERED: OLAN10TA29 PO (17:26)
[2017-11-18] MEDS: DOCUSATE SOD 100 MG CAP PO PRN (17:28)
[2017-11-18] MEDS: OXYCODONE W/ ACETAMINOPHEN 5/325MG TABLET PO PRN ×2 (17:28→21:28)
[2017-11-18 20:00] VITALS: BP 155/102
[2017-11-18 21:01] VITALS: BP 155/107
[2017-11-18] MEDS: PRAZOSIN HCL 1 MG CAP PO SCH (22:06)
[2017-11-18] MEDS: MORPHINE SULF 30 mg ER tab PO SCH (22:07)
[2017-11-18] MEDS: FAMOTIDINE 20 MG TAB PO SCH (22:07)
[2017-11-18] MEDS: hydrOXYzine 25 MG TAB or CAP PO SCH (22:07)
[2017-11-19 04:54] VITALS: BP 122/87
[2017-11-19] MEDS: SODIUM CHLOR 0.9% PF (SALINE LOCK) 10ML VIAL/SYR IV SCH ×3 (05:53→21:56)
[2017-11-19] MEDS: methylPREDNISolone SOD SUCC 40 MG/ML VL IV SCH ×2 (05:53→21:54)
[2017-11-19] MEDS: GABAPENTIN 300 MG CAP PO SCH ×3 (05:53→21:56)
[2017-11-19] MEDS: OXYCODONE W/ ACETAMINOPHEN 5/325MG TABLET PO PRN ×2 (06:04→18:00)
[2017-11-19] MEDS: ALBUTEROL SULF 2.5 MG/0.5ML(0.5%) NEB SOLN NEB SCH ×3 (06:07→22:15)
[2017-11-19] MEDS: IPRATROPIUM BROM 0.5 MG/2.5ML INH SOL NEB SCH ×3 (06:07→22:15)
[2017-11-19 06:11] LABS: Basophils # (auto) 0 uL; Basophils % (auto) 0.1 % (0.0-2.0); Eosinophils # (auto) 0 uL; Hematocrit 37.4 % (36.0-46.0); Hemoglobin 12.9 g/dL (12.2-16.2); Lymphocytes # (auto) 0.7 uL; Lymphocytes % (auto) 7.9 % (10.0-50.0); Mean Corpuscular Hemoglobin 30.9 pg (28.0-32.0); Mean Corpuscular Hgb Conc. 34.5 g/dL (32.0-36.0); Mean Corpuscular Volume 89.4 fL (80.0-100.0); Monocytes # (auto) 0.4 uL; Monocytes % (auto) 4.4 % (0.0-12.0); Neutrophils # (auto) 7.3 uL; Neutrophils % (auto) 87.6 % (37.0-80.0); Platelet Count (auto) 412 10^3/uL (140-450); Red Blood Cells 4.18 10^6/uL (4.0-5.20); Red Cell Distribution Width 13.6 % (11.8-14.3); White Blood Cell 8.4 10^3/uL (4.4-10.8)
[2017-11-19 06:31] LABS: Albumin 2.6 g/dL (3.4-5.0); BUN/Creatinine Ratio 27.2; Calcium 8.6 mg/dL (8.5-10.1); Potassium 3.7 mmol/L (3.5-5.1)
[2017-11-19 06:34] LABS: Bilirubin, Total 0.3 mg/dL (0.2-1.0); Total Protein 6.7 g/dL (6.4-8.2)
[2017-11-19] MEDS: BOOST PLUS 8 ounce PO SCH ×3 (08:00→18:34)
[2017-11-19 08:21] VITALS: BP 119/82
[2017-11-19] MEDS: cefTRIAXone 1GM/10ml IVPUSH 10 ML IV SCH ×2 (09:00→14:30)
[2017-11-19] MEDS ORDERED: LIDOCAINE 2% (LOCAL ANESTH.) PF 5ml SDV ONE (09:13)
[2017-11-19] MEDS ORDERED: NALOXONE HCL 0.4 MG/ML VIAL ONE (09:13)
[2017-11-19] MEDS ORDERED: FLUMAZENIL 0.1 MG/ML INJ 10ML MDV IV ONE (09:13)
[2017-11-19] MEDS ORDERED: SODIUM CHLORIDE LOCK 30 ML ONE (09:14)
[2017-11-19] MEDS ORDERED: EPINEPHrine HCL 1 MG/1 ML AMP ONE (09:14)
[2017-11-19] MEDS ORDERED: LIDOCAINE HCL 2% TOP JELLY 5ML TOP ONE (09:14)
[2017-11-19] MEDS ORDERED: GLYCOPYRROLATE 0.2 MG/ML 1ML VIAL IV ONE (09:30)
[2017-11-19] MEDS: FAMOTIDINE 20 MG TAB PO SCH ×2 (10:00→21:54)
[2017-11-19] MEDS ORDERED: ASPirin-EC 81 mg tab PO SCH (10:00)
[2017-11-19] MEDS: MIDAZOLAM HCL 5 MG/ML-1ML VIAL ONE ×4 (10:44→10:52)
[2017-11-19] MEDS: fentaNYL CITRATE 100 MCG/2 ML VL ONE ×4 (10:44→10:55)
[2017-11-19 12:49] VITALS: BP 117/41
[2017-11-19] MEDS: SODIUM CHLORIDE 0.9% 1,000 ML IV SCH ×2 (13:15→15:22)
[2017-11-19] MEDS ORDERED: AZITHROMYCIN 500MG/ 250ML 250 ML IV ONE (13:15)
[2017-11-19] MEDS ORDERED: DEXTROSE (50%) 50ML SYRG IV PRN (13:15)
[2017-11-19] MEDS: OLANZapine 5 MG TAB PO SCH (14:27)
[2017-11-19] MEDS: MULTIPLE VITAMIN TAB PO SCH (14:28)
[2017-11-19] MEDS: DOCUSATE SOD 100 MG CAP PO PRN (14:28)
[2017-11-19] MEDS: MORPHINE SULF 30 mg ER tab PO SCH ×2 (14:30→21:55)
[2017-11-19] MEDS: LOSARTAN POTASSIUM 50 MG TAB PO SCH (14:51)
[2017-11-19 16:42] VITALS: BP 111/70
[2017-11-19] MEDS: InsuLIN REG 1unit/0.01ml Soln (100units/ml) SC SCH ×2 (17:00→21:54)
[2017-11-19] MEDS: ACCU-CHEK COMFORT CURVE STRIP VI SCH ×2 (17:59→21:54)
[2017-11-19] MEDS: hydrOXYzine 25 MG TAB or CAP PO SCH (21:56)
[2017-11-19] MEDS: PRAZOSIN HCL 1 MG CAP PO SCH (21:57)
[2017-11-19 22:00] VITALS: BP 143/94
[2017-11-19] MEDS: TEMAZEPAM 15 MG CAP PO PRN (23:27)
[2017-11-20] MEDS: OXYCODONE W/ ACETAMINOPHEN 5/325MG TABLET PO PRN ×2 (04:18→12:49)
[2017-11-20 05:50] VITALS: BP 138/98
[2017-11-20] MEDS: GABAPENTIN 300 MG CAP PO SCH ×3 (06:02→21:37)
[2017-11-20] MEDS: SODIUM CHLOR 0.9% PF (SALINE LOCK) 10ML VIAL/SYR IV SCH ×3 (06:03→21:36)
[2017-11-20] MEDS: ACCU-CHEK COMFORT CURVE STRIP VI SCH ×4 (06:06→21:43)
[2017-11-20] MEDS: InsuLIN REG 1unit/0.01ml Soln (100units/ml) SC SCH ×4 (06:06→22:00)
[2017-11-20 06:42] LABS: Basophils # (auto) 0 uL; Eosinophils # (auto) 0 uL; Lymphocytes # (auto) 0.5 uL; Monocytes # (auto) 0.4 uL; Red Cell Distribution Width 13.7 % (11.8-14.3)
[2017-11-20 06:45] LABS: INR 1.07 (0.9-1.15); Prothrombin Time 11.4 sec (9.27-12.13)
[2017-11-20] MEDS: ALBUTEROL SULF 2.5 MG/0.5ML(0.5%) NEB SOLN NEB SCH ×3 (06:46→22:08)
[2017-11-20] MEDS: IPRATROPIUM BROM 0.5 MG/2.5ML INH SOL NEB SCH ×3 (06:46→22:08)
[2017-11-20 06:54] LABS: Basophils % (auto) 0.2 % (0.0-2.0); Hematocrit 36.4 % (36.0-46.0); Hemoglobin 12.1 g/dL (12.2-16.2); Lymphocytes % (auto) 3.6 % (10.0-50.0); Mean Corpuscular Hgb Conc. 33.1 g/dL (32.0-36.0); Mean Corpuscular Volume 90.6 fL (80.0-100.0); Monocytes % (auto) 2.8 % (0.0-12.0); Neutrophils # (auto) 12.8 uL; Neutrophils % (auto) 93.4 % (37.0-80.0); Platelet Count (auto) 468 10^3/uL (140-450); Red Blood Cells 4.02 10^6/uL (4.0-5.20); White Blood Cell 13.7 10^3/uL (4.4-10.8)
[2017-11-20 06:59] LABS: BUN/Creatinine Ratio 35.5; Calcium 8.8 mg/dL (8.5-10.1); Magnesium 2.5 mg/dL (1.6-2.6); Potassium 4.6 mmol/L (3.5-5.1)
[2017-11-20 08:00] VITALS: BP 145/95
[2017-11-20] MEDS: BOOST PLUS 8 ounce PO SCH ×3 (08:00→18:28)
[2017-11-20] MEDS: FAMOTIDINE 20 MG TAB PO SCH ×2 (10:00→21:37)
[2017-11-20] MEDS: LOSARTAN POTASSIUM 50 MG TAB PO SCH (10:00)
[2017-11-20] MEDS: MULTIPLE VITAMIN TAB PO SCH (10:23)
[2017-11-20] MEDS: methylPREDNISolone SOD SUCC 40 MG/ML VL IV SCH ×2 (10:23→21:36)
[2017-11-20] MEDS: OLANZapine 5 MG TAB PO SCH (10:24)
[2017-11-20] MEDS: AZITHROMYCIN 500MG/ 250ML 250 ML IV SCH (10:25)
[2017-11-20] MEDS: MORPHINE SULF 30 mg ER tab PO SCH ×2 (10:26→21:38)
[2017-11-20 12:00] VITALS: BP 153/110
[2017-11-20 15:00] VITALS: BP 174/118
[2017-11-20 20:00] VITALS: BP 171/120
[2017-11-20] MEDS: PRAZOSIN HCL 1 MG CAP PO SCH (21:37)
[2017-11-20] MEDS: hydrOXYzine 25 MG TAB or CAP PO SCH (21:37)
[2017-11-20] MEDS: cloNIDine HCL 0.1 MG TAB PO PRN (21:39)
[2017-11-20] MEDS: TEMAZEPAM 15 MG CAP PO PRN (22:02)
[2017-11-20 22:38] VITALS: BP 171/120
[2017-11-21] MEDS: OXYCODONE W/ ACETAMINOPHEN 5/325MG TABLET PO PRN ×4 (01:58→20:23)
[2017-11-21] MEDS: GABAPENTIN 300 MG CAP PO SCH ×3 (05:43→21:57)
[2017-11-21] MEDS: cloNIDine HCL 0.1 MG TAB PO PRN ×2 (05:43→09:36)
[2017-11-21] MEDS: ACCU-CHEK COMFORT CURVE STRIP VI SCH ×4 (05:46→22:01)
[2017-11-21] MEDS: InsuLIN REG 1unit/0.01ml Soln (100units/ml) SC SCH ×4 (05:47→22:00)
[2017-11-21 05:48] VITALS: BP 160/112
[2017-11-21] MEDS: SODIUM CHLOR 0.9% PF (SALINE LOCK) 10ML VIAL/SYR IV SCH ×3 (05:48→22:02)
[2017-11-21 06:35] LABS: Basophils # (auto) 0 uL; Basophils % (auto) 0.1 % (0.0-2.0); Eosinophils # (auto) 0 uL; Hematocrit 36.3 % (36.0-46.0); Hemoglobin 12.1 g/dL (12.2-16.2); Lymphocytes # (auto) 0.5 uL; Lymphocytes % (auto) 4.9 % (10.0-50.0); Mean Corpuscular Hemoglobin 29.9 pg (28.0-32.0); Mean Corpuscular Hgb Conc. 33.3 g/dL (32.0-36.0); Monocytes # (auto) 0.4 uL; Monocytes % (auto) 3.4 % (0.0-12.0); Neutrophils # (auto) 10.1 uL; Neutrophils % (auto) 91.6 % (37.0-80.0); Platelet Count (auto) 445 10^3/uL (140-450); Red Blood Cells 4.04 10^6/uL (4.0-5.20); Red Cell Distribution Width 13.9 % (11.8-14.3)
[2017-11-21 07:08] LABS: Potassium 4.9 mmol/L (3.5-5.1)
[2017-11-21 07:15] LABS: Calcium 8.7 mg/dL (8.5-10.1)
[2017-11-21] MEDS: IPRATROPIUM BROM 0.5 MG/2.5ML INH SOL NEB SCH ×3 (07:37→22:16)
[2017-11-21] MEDS: ALBUTEROL SULF 2.5 MG/0.5ML(0.5%) NEB SOLN NEB SCH ×3 (07:37→22:16)
[2017-11-21 09:00] VITALS: BP 166/111
[2017-11-21] MEDS: OLANZapine 5 MG TAB PO SCH (09:22)
[2017-11-21] MEDS: AZITHROMYCIN 500MG/ 250ML 250 ML IV SCH (09:23)
[2017-11-21] MEDS: MORPHINE SULF 30 mg ER tab PO SCH ×2 (09:23→21:54)
[2017-11-21] MEDS: methylPREDNISolone SOD SUCC 40 MG/ML VL IV SCH ×2 (09:23→22:02)
[2017-11-21] MEDS: MULTIPLE VITAMIN TAB PO SCH (09:23)
[2017-11-21] MEDS: cefTRIAXone 1GM/10ml IVPUSH 10 ML IV SCH (09:23)
[2017-11-21] MEDS: LOSARTAN POTASSIUM 50 MG TAB PO SCH (09:24)
[2017-11-21] MEDS: BOOST PLUS 8 ounce PO SCH ×3 (09:26→18:53)
[2017-11-21] MEDS: FAMOTIDINE 20 MG TAB PO SCH ×2 (09:26→21:57)
[2017-11-21] MEDS ORDERED: METOPROLOL TARTRATE 25 MG TAB PO SCH (10:00)
[2017-11-21] MEDS ORDERED: MET25T PO (11:35)
[2017-11-21] MEDS ORDERED: LEVO500T21 PO (11:35)
[2017-11-21 13:00] VITALS: BP 152/108
[2017-11-21 13:59] VITALS: BP 152/108
[2017-11-21] MEDS ORDERED: hydrALAZINE HCL 20 MG/ML VL IV PRN (15:15)
[2017-11-21] MEDS ORDERED: LABETALOL HCL 5 MG/ML ML 20ML VIAL IV PRN (15:45)
[2017-11-21 17:00] VITALS: BP 173/104
[2017-11-21] MEDS: DOCUSATE SOD 100 MG CAP PO PRN (17:10)
[2017-11-21] MEDS: LABETALOL HCL 5 MG/ML ML 20ML VIAL IV PRN (18:50)
[2017-11-21] MEDS ORDERED: cloNIDine HCL 0.1 MG TAB PO ONE (20:45)
[2017-11-21] MEDS ORDERED: hydrALAZINE HCL 20 MG/ML VL ONE (21:24)
[2017-11-21] MEDS: PRAZOSIN HCL 1 MG CAP PO SCH (21:57)
[2017-11-21] MEDS: hydrOXYzine 25 MG TAB or CAP PO SCH (21:58)
[2017-11-21] MEDS: METOPROLOL TARTRATE 25 MG TAB PO SCH (21:59)
[2017-11-21 22:00] VITALS: BP 202/134
[2017-11-21] MEDS: TEMAZEPAM 15 MG CAP PO PRN (22:08)
[2017-11-22] MEDS: OXYCODONE W/ ACETAMINOPHEN 5/325MG TABLET PO PRN ×5 (01:13→20:04)
[2017-11-22 05:00] VITALS: BP 155/108
[2017-11-22] MEDS: SODIUM CHLOR 0.9% PF (SALINE LOCK) 10ML VIAL/SYR IV SCH ×3 (05:05→21:56)
[2017-11-22] MEDS: GABAPENTIN 300 MG CAP PO SCH ×3 (05:05→21:57)
[2017-11-22] MEDS: IPRATROPIUM BROM 0.5 MG/2.5ML INH SOL NEB SCH ×4 (06:21→22:00)
[2017-11-22] MEDS: ALBUTEROL SULF 2.5 MG/0.5ML(0.5%) NEB SOLN NEB SCH ×4 (06:21→22:00)
[2017-11-22] MEDS: ACCU-CHEK COMFORT CURVE STRIP VI SCH ×4 (06:35→21:57)
[2017-11-22] MEDS: InsuLIN REG 1unit/0.01ml Soln (100units/ml) SC SCH ×4 (06:35→21:58)
[2017-11-22 08:30] VITALS: BP 166/112
[2017-11-22] MEDS: BOOST PLUS 8 ounce PO SCH ×3 (08:42→18:20)
[2017-11-22] MEDS: cefTRIAXone 1GM/10ml IVPUSH 10 ML IV SCH (09:25)
[2017-11-22] MEDS ORDERED: amLODIPine BESYLATE 5 MG TAB PO ONE (09:45)
[2017-11-22] MEDS: AZITHROMYCIN 500MG/ 250ML 250 ML IV SCH (10:20)
[2017-11-22] MEDS: MORPHINE SULF 30 mg ER tab PO SCH ×2 (10:23→21:53)
[2017-11-22] MEDS: MULTIPLE VITAMIN TAB PO SCH (10:23)
[2017-11-22] MEDS: methylPREDNISolone SOD SUCC 40 MG/ML VL IV SCH ×4 (10:23→23:50)
[2017-11-22] MEDS: FAMOTIDINE 20 MG TAB PO SCH (10:24)
[2017-11-22] MEDS: LOSARTAN POTASSIUM 50 MG TAB PO SCH (10:24)
[2017-11-22] MEDS: OLANZapine 5 MG TAB PO SCH (10:24)
[2017-11-22] MEDS: METOPROLOL TARTRATE 25 MG TAB PO SCH ×2 (10:25→21:56)
[2017-11-22] MEDS: NICOTINE 21MG/24 HR TOPICAL PATCH TD SCH (10:34)
[2017-11-22] MEDS: ONDANSETRON HCL 4 MG/2 ML VIAL IV PRN (10:39)
[2017-11-22] MEDS ORDERED: MIDAZOLAM HCL 1MG/1ML-2 ML VIAL ONE (11:27)
[2017-11-22] MEDS ORDERED: fentaNYL CITRATE 100 MCG/2 ML VL ONE (11:27)
[2017-11-22] MEDS ORDERED: LIDOCAINE 2% (LOCAL ANESTH.) PF 5ml SDV ONE (11:42)
[2017-11-22 12:30] VITALS: BP 132/92
[2017-11-22] MEDS: DOCUSATE SOD 100 MG CAP PO PRN (14:41)
[2017-11-22 16:42] VITALS: BP 130/82
[2017-11-22] MEDS ORDERED: GASTROGRAFIN 30 ML SOL ONE (17:20)
[2017-11-22] MEDS ORDERED: IOHEXOL 300 MG/ML 100ML BOTTLE IJ ONE (19:23)
[2017-11-22] MEDS: PRAZOSIN HCL 1 MG CAP PO SCH (21:54)
[2017-11-22] MEDS: hydrOXYzine 25 MG TAB or CAP PO SCH (21:55)
[2017-11-22 22:00] VITALS: BP 150/97
[2017-11-22] MEDS: TEMAZEPAM 15 MG CAP PO PRN (23:51)
[2017-11-23] MEDS: ONDANSETRON HCL 4 MG/2 ML VIAL IV PRN (01:02)
[2017-11-23] MEDS: OXYCODONE W/ ACETAMINOPHEN 5/325MG TABLET PO PRN ×5 (01:05→22:08)
[2017-11-23] MEDS: IPRATROPIUM BROM 0.5 MG/2.5ML INH SOL NEB SCH ×6 (02:00→22:15)
[2017-11-23] MEDS: ALBUTEROL SULF 2.5 MG/0.5ML(0.5%) NEB SOLN NEB SCH ×6 (02:00→22:15)
[2017-11-23 05:48] VITALS: BP 130/81
[2017-11-23] MEDS: SODIUM CHLOR 0.9% PF (SALINE LOCK) 10ML VIAL/SYR IV SCH ×3 (05:53→21:41)
[2017-11-23] MEDS: methylPREDNISolone SOD SUCC 40 MG/ML VL IV SCH ×3 (05:53→17:29)
[2017-11-23] MEDS: GABAPENTIN 300 MG CAP PO SCH ×3 (05:54→21:43)
[2017-11-23] MEDS: InsuLIN REG 1unit/0.01ml Soln (100units/ml) SC SCH ×4 (06:26→22:19)
[2017-11-23 06:32] LABS: Basophils # (auto) 0 uL; Eosinophils # (auto) 0 uL; Hematocrit 35.5 % (36.0-46.0); Hemoglobin 11.8 g/dL (12.2-16.2); Lymphocytes # (auto) 0.5 uL; Lymphocytes % (auto) 4.3 % (10.0-50.0); Mean Corpuscular Hgb Conc. 33.2 g/dL (32.0-36.0); Mean Corpuscular Volume 90.5 fL (80.0-100.0); Monocytes # (auto) 0.4 uL; Monocytes % (auto) 2.9 % (0.0-12.0); Neutrophils # (auto) 11.9 uL; Neutrophils % (auto) 92.8 % (37.0-80.0); Platelet Count (auto) 440 10^3/uL (140-450); Red Blood Cells 3.92 10^6/uL (4.0-5.20); Red Cell Distribution Width 13.7 % (11.8-14.3); White Blood Cell 12.8 10^3/uL (4.4-10.8)
[2017-11-23] MEDS: ACCU-CHEK COMFORT CURVE STRIP VI SCH ×4 (06:37→22:16)
[2017-11-23 06:43] LABS: BUN/Creatinine Ratio 26.7; Calcium 8.8 mg/dL (8.5-10.1); Magnesium 2.4 mg/dL (1.6-2.6); Potassium 4.8 mmol/L (3.5-5.1)
[2017-11-23] MEDS: AZITHROMYCIN 500MG/ 250ML 250 ML IV SCH (09:34)
[2017-11-23] MEDS: cefTRIAXone 1GM/10ml IVPUSH 10 ML IV SCH (09:34)
[2017-11-23] MEDS: ENOXAPARIN SOD 40 MG/0.4 ML SYRINGE SC SCH (09:35)
[2017-11-23] MEDS: LOSARTAN POTASSIUM 50 MG TAB PO SCH (09:35)
[2017-11-23] MEDS: MULTIPLE VITAMIN TAB PO SCH (09:36)
[2017-11-23] MEDS: OLANZapine 5 MG TAB PO SCH (09:36)
[2017-11-23] MEDS: PANTOPRAZOLE 40 MG TAB PO SCH (09:36)
[2017-11-23] MEDS: MORPHINE SULF 30 mg ER tab PO SCH ×2 (09:36→21:43)
[2017-11-23] MEDS: METOPROLOL TARTRATE 25 MG TAB PO SCH ×2 (09:37→21:42)
[2017-11-23] MEDS: amLODIPine BESYLATE 5 MG TAB PO SCH (09:37)
[2017-11-23] MEDS: NICOTINE 21MG/24 HR TOPICAL PATCH TD SCH (09:38)
[2017-11-23] MEDS: BOOST PLUS 8 ounce PO SCH ×3 (09:39→18:01)
[2017-11-23 10:18] VITALS: BP 158/97
[2017-11-23 13:00] VITALS: BP 135/87
[2017-11-23 17:00] VITALS: BP 151/94
[2017-11-23] MEDS: hydrOXYzine 25 MG TAB or CAP PO SCH (21:43)
[2017-11-23] MEDS: PRAZOSIN HCL 1 MG CAP PO SCH (21:43)
[2017-11-23 22:00] VITALS: BP 169/104
[2017-11-24] VITALS (8 sets, daily range): BP systolic 134–180; BP diastolic 96–119
[2017-11-24] MEDS: ALBUTEROL SULF 2.5 MG/0.5ML(0.5%) NEB SOLN NEB SCH ×6 (02:22→22:20)
[2017-11-24] MEDS: IPRATROPIUM BROM 0.5 MG/2.5ML INH SOL NEB SCH ×6 (02:22→22:20)
[2017-11-24] MEDS: OXYCODONE W/ ACETAMINOPHEN 5/325MG TABLET PO PRN ×3 (03:19→09:43)
[2017-11-24 05:31] LABS: Basophils # (auto) 0 uL; Eosinophils # (auto) 0 uL; Lymphocytes # (auto) 0.4 uL; Mean Corpuscular Volume 90.8 fL (80.0-100.0); Neutrophils # (auto) 16.8 uL
[2017-11-24 05:32] LABS: Hematocrit 40.1 % (36.0-46.0); Hemoglobin 13.2 g/dL (12.2-16.2); Mean Corpuscular Hemoglobin 29.8 pg (28.0-32.0); Mean Corpuscular Hgb Conc. 32.9 g/dL (32.0-36.0); Monocytes # (auto) 0.7 uL; Monocytes % (auto) 3.7 % (0.0-12.0); Neutrophils % (auto) 94.3 % (37.0-80.0); Red Blood Cells 4.41 10^6/uL (4.0-5.20); Red Cell Distribution Width 14.1 % (11.8-14.3); White Blood Cell 17.9 10^3/uL (4.4-10.8)
[2017-11-24 05:33] LABS: Platelet Count (auto) 507 10^3/uL (140-450)
[2017-11-24] MEDS: ACCU-CHEK COMFORT CURVE STRIP VI SCH ×4 (06:08→22:28)
[2017-11-24] MEDS: GABAPENTIN 300 MG CAP PO SCH ×3 (06:08→22:23)
[2017-11-24] MEDS: SODIUM CHLOR 0.9% PF (SALINE LOCK) 10ML VIAL/SYR IV SCH ×3 (06:08→22:21)
[2017-11-24] MEDS: methylPREDNISolone SOD SUCC 40 MG/ML VL IV SCH ×5 (06:08→23:37)
[2017-11-24] MEDS: InsuLIN REG 1unit/0.01ml Soln (100units/ml) SC SCH ×4 (06:09→22:29)
[2017-11-24] MEDS: LABETALOL HCL 5 MG/ML ML 20ML VIAL IV PRN ×3 (06:16→18:24)
[2017-11-24] MEDS: cefTRIAXone 1GM/10ml IVPUSH 10 ML IV SCH (08:25)
[2017-11-24] MEDS: BOOST PLUS 8 ounce PO SCH ×3 (08:26→18:10)
[2017-11-24] MEDS: NICOTINE 21MG/24 HR TOPICAL PATCH TD SCH (09:44)
[2017-11-24] MEDS: ENOXAPARIN SOD 40 MG/0.4 ML SYRINGE SC SCH (09:44)
[2017-11-24] MEDS: AZITHROMYCIN 500MG/ 250ML 250 ML IV SCH (09:44)
[2017-11-24] MEDS: MULTIPLE VITAMIN TAB PO SCH (09:44)
[2017-11-24] MEDS: amLODIPine BESYLATE 5 MG TAB PO SCH (09:45)
[2017-11-24] MEDS: MORPHINE SULF 30 mg ER tab PO SCH ×2 (09:45→22:23)
[2017-11-24] MEDS: OLANZapine 5 MG TAB PO SCH (09:45)
[2017-11-24] MEDS: LOSARTAN POTASSIUM 50 MG TAB PO SCH (09:46)
[2017-11-24] MEDS: METOPROLOL TARTRATE 25 MG TAB PO SCH (09:46)
[2017-11-24] MEDS: PANTOPRAZOLE 40 MG TAB PO SCH (09:46)
[2017-11-24] MEDS ORDERED: NYSTATIN (MOUTH-THROAT) 500,000 UNITS/5 ML SUSP MT ONE (12:15)
[2017-11-24] MEDS ORDERED: MEPERIDINE HCL (25 MG/ML) 1ML VIAL IM PRN (13:00)
[2017-11-24] MEDS: MEPERIDINE HCL (50 MG/ML) 1 ML VIAL IM PRN ×3 (15:23→23:39)
[2017-11-24] MEDS: NYSTATIN (MOUTH-THROAT) 500,000 UNITS/5 ML SUSP MT SCH ×2 (18:08→22:21)
[2017-11-24] MEDS: DOCUSATE SOD 100 MG CAP PO PRN ×2 (19:42)
[2017-11-24] MEDS: PRAZOSIN HCL 1 MG CAP PO SCH (22:23)
[2017-11-24] MEDS: METOPROLOL TARTRATE 50 MG TAB PO SCH (22:23)
[2017-11-24] MEDS: hydrOXYzine 25 MG TAB or CAP PO SCH (22:23)
[2017-11-24] MEDS: TEMAZEPAM 15 MG CAP PO PRN ×2 (22:24)
[2017-11-25] VITALS (52 sets, daily range): BP systolic 109–182; BP diastolic 59–130
[2017-11-25] MEDS: IPRATROPIUM BROM 0.5 MG/2.5ML INH SOL NEB SCH ×6 (02:00→22:37)
[2017-11-25] MEDS: ALBUTEROL SULF 2.5 MG/0.5ML(0.5%) NEB SOLN NEB SCH ×6 (02:00→22:37)
[2017-11-25] MEDS: MEPERIDINE HCL (50 MG/ML) 1 ML VIAL IM PRN ×2 (03:43→07:56)
[2017-11-25] MEDS: LABETALOL HCL 5 MG/ML ML 20ML VIAL IV PRN (04:37)
[2017-11-25] MEDS: GABAPENTIN 300 MG CAP PO SCH ×4 (06:00→14:00)
[2017-11-25] MEDS: NYSTATIN (MOUTH-THROAT) 500,000 UNITS/5 ML SUSP MT SCH ×5 (06:00→22:20)
[2017-11-25] MEDS: methylPREDNISolone SOD SUCC 40 MG/ML VL IV SCH ×2 (06:11→13:08)
[2017-11-25] MEDS: SODIUM CHLOR 0.9% PF (SALINE LOCK) 10ML VIAL/SYR IV SCH ×3 (06:11→22:20)
[2017-11-25] MEDS: ACCU-CHEK COMFORT CURVE STRIP VI SCH ×4 (06:34→22:30)
[2017-11-25] MEDS: InsuLIN REG 1unit/0.01ml Soln (100units/ml) SC SCH ×4 (06:37→22:30)
[2017-11-25] MEDS: cefTRIAXone 1GM/10ml IVPUSH 10 ML IV SCH (09:20)
[2017-11-25] MEDS: AZITHROMYCIN 500MG/ 250ML 250 ML IV SCH (09:20)
[2017-11-25] MEDS: amLODIPine BESYLATE 5 MG TAB PO SCH (09:21)
[2017-11-25] MEDS: PANTOPRAZOLE 40 MG TAB PO SCH (09:21)
[2017-11-25] MEDS: ENOXAPARIN SOD 40 MG/0.4 ML SYRINGE SC SCH (09:22)
[2017-11-25] MEDS: MULTIPLE VITAMIN TAB PO SCH (09:22)
[2017-11-25] MEDS: LOSARTAN POTASSIUM 50 MG TAB PO SCH (09:22)
[2017-11-25] MEDS: OLANZapine 5 MG TAB PO SCH (09:22)
[2017-11-25] MEDS: METOPROLOL TARTRATE 50 MG TAB PO SCH ×2 (09:23)
[2017-11-25] MEDS: MORPHINE SULF 30 mg ER tab PO SCH ×2 (09:23→22:20)
[2017-11-25] MEDS: BOOST PLUS 8 ounce PO SCH ×2 (09:23→12:00)
[2017-11-25] MEDS: NICOTINE 21MG/24 HR TOPICAL PATCH TD SCH (09:23)
[2017-11-25 09:25] LABS: Basophils # (auto) 0 uL; Eosinophils # (auto) 0 uL; Hemoglobin 13.4 g/dL (12.2-16.2); Neutrophils # (auto) 20.4 uL; Red Cell Distribution Width 13.6 % (11.8-14.3)
[2017-11-25 09:28] LABS: Basophils % (auto) 0.1 % (0.0-2.0); Hematocrit 40.6 % (36.0-46.0); Lymphocytes # (auto) 0.4 uL; Mean Corpuscular Hemoglobin 29.9 pg (28.0-32.0); Mean Corpuscular Volume 90.6 fL (80.0-100.0); Monocytes # (auto) 0.8 uL; Monocytes % (auto) 3.8 % (0.0-12.0); Neutrophils % (auto) 94.1 % (37.0-80.0); Platelet Count (auto) 532 10^3/uL (140-450); Red Blood Cells 4.47 10^6/uL (4.0-5.20); White Blood Cell 21.6 10^3/uL (4.4-10.8)
[2017-11-25] MEDS: LORazepam 2MG/ML-1ML VIAL IV PRN (10:26)
[2017-11-25] MEDS ORDERED: VANCOMYCIN PER PHARMACY 0 MG IV SCH (11:00)
[2017-11-25] MEDS ORDERED: hydrALAZINE HCL 20 MG/ML VL IV PRN (11:00)
[2017-11-25] MEDS ORDERED: ROCURONIUM 10MG/ML 10ML VIAL IV ONE (11:41)
[2017-11-25] MEDS ORDERED: ETOMIDATE (2MG/ML) 20ML VIAL IV ONE (11:41)
[2017-11-25] MEDS ORDERED: SUCCINYLCHOLINE CHLORIDE 20 MG/ML 10ML VIAL IV ONE (11:42)
[2017-11-25] MEDS: PROPOFOL 100 ML IV SCH ×2 (11:47→12:00)
[2017-11-25] MEDS ORDERED: fentaNYL Drip 2500mCg/250mlNS 250 ML IV ONE (11:55)
[2017-11-25] MEDS ORDERED: MIDAZOLAM DRIP 50 mg/50mL 50 ML IV ONE (11:55)
[2017-11-25] MEDS: fentaNYL Drip 2500mCg/250mlNS 250 ML IV SCH (12:00)
[2017-11-25] MEDS ORDERED: VANCOMYCIN 750 MG in D5W 5% 250 ML IV SCH (13:00)
[2017-11-25] MEDS: VANCOMYCIN 750 MG in D5W 5% 250 ML IV SCH (14:42)
[2017-11-25] MEDS: MIDAZOLAM DRIP 50 mg/50mL 50 ML IV SCH ×2 (15:30→20:30)
[2017-11-25] MEDS: PRAZOSIN HCL 1 MG CAP PO SCH (22:00)
[2017-11-25] MEDS: hydrOXYzine 25 MG TAB or CAP PO SCH (22:20)
[2017-11-26] VITALS (108 sets, daily range): BP systolic 92–139; BP diastolic 48–95
[2017-11-26] MEDS: IPRATROPIUM BROM 0.5 MG/2.5ML INH SOL NEB SCH ×6 (02:14→22:20)
[2017-11-26] MEDS: ALBUTEROL SULF 2.5 MG/0.5ML(0.5%) NEB SOLN NEB SCH ×6 (02:14→22:20)
[2017-11-26] MEDS: VANCOMYCIN 750 MG in D5W 5% 250 ML IV SCH ×2 (03:00→14:46)
[2017-11-26 05:29] LABS: Basophils # (auto) 0 uL; Basophils % (auto) 0.1 % (0.0-2.0); Eosinophils # (auto) 0 uL; Hematocrit 39.5 % (36.0-46.0); Lymphocytes # (auto) 0.6 uL; Mean Corpuscular Hemoglobin 30.2 pg (28.0-32.0); Mean Corpuscular Hgb Conc. 32.9 g/dL (32.0-36.0); Mean Corpuscular Volume 91.9 fL (80.0-100.0); Monocytes % (auto) 5.1 % (0.0-12.0); Neutrophils # (auto) 17.6 uL; Neutrophils % (auto) 91.8 % (37.0-80.0); Platelet Count (auto) 428 10^3/uL (140-450); Red Cell Distribution Width 13.6 % (11.8-14.3); White Blood Cell 19.2 10^3/uL (4.4-10.8)
[2017-11-26 05:50] LABS: Albumin 2.7 g/dL (3.4-5.0); BUN/Creatinine Ratio 34.9; Bilirubin, Total 0.5 mg/dL (0.2-1.0); Calcium 8.5 mg/dL (8.5-10.1); Potassium 4.3 mmol/L (3.5-5.1); Total Protein 6.2 g/dL (6.4-8.2)
[2017-11-26] MEDS: NYSTATIN (MOUTH-THROAT) 500,000 UNITS/5 ML SUSP MT SCH ×2 (06:00→11:32)
[2017-11-26] MEDS: SODIUM CHLOR 0.9% PF (SALINE LOCK) 10ML VIAL/SYR IV SCH ×3 (06:00→22:46)
[2017-11-26] MEDS: methylPREDNISolone SOD SUCC 40 MG/ML VL IV SCH ×5 (06:00→23:37)
[2017-11-26] MEDS: GABAPENTIN 300 MG CAP PO SCH ×4 (06:00→22:46)
[2017-11-26] MEDS: ACCU-CHEK COMFORT CURVE STRIP VI SCH ×4 (06:44→22:46)
[2017-11-26] MEDS: InsuLIN REG 1unit/0.01ml Soln (100units/ml) SC SCH ×4 (06:44→23:11)
[2017-11-26] MEDS ORDERED: Nutren Pulmonary 1 Liter GT SCH (08:30)
[2017-11-26] MEDS: cefTRIAXone 1GM/10ml IVPUSH 10 ML IV SCH (09:08)
[2017-11-26] MEDS: Nutren Pulmonary 1 Liter GT SCH (09:25)
[2017-11-26] MEDS: NICOTINE 21MG/24 HR TOPICAL PATCH TD SCH (10:00)
[2017-11-26] MEDS: METOPROLOL TARTRATE 50 MG TAB PO SCH ×3 (10:00→22:46)
[2017-11-26] MEDS: amLODIPine BESYLATE 5 MG TAB PO SCH (10:00)
[2017-11-26] MEDS: MORPHINE SULF 30 mg ER tab PO SCH ×2 (10:00→22:48)
[2017-11-26] MEDS: LOSARTAN POTASSIUM 50 MG TAB PO SCH (10:00)
[2017-11-26] MEDS: PANTOPRAZOLE 40 MG/10 ML VIAL IV SCH (10:01)
[2017-11-26] MEDS: OLANZapine 5 MG TAB PO SCH (10:01)
[2017-11-26] MEDS: ENOXAPARIN SOD 40 MG/0.4 ML SYRINGE SC SCH (10:01)
[2017-11-26] MEDS: AZITHROMYCIN 500MG/ 250ML 250 ML IV SCH (10:01)
[2017-11-26] MEDS: MULTIPLE VITAMIN TAB PO SCH (10:01)
[2017-11-26] MEDS: PROPOFOL 100 ML IV SCH (11:32)
[2017-11-26] MEDS: MIDAZOLAM DRIP 50 mg/50mL 50 ML IV SCH (11:45)
[2017-11-26] MEDS: fentaNYL Drip 2500mCg/250mlNS 250 ML IV SCH ×2 (11:47→17:37)
[2017-11-26] MEDS ORDERED: SODIUM CHLORIDE 0.9% 1,000 ML IV ONE (12:15)
[2017-11-26] MEDS: hydrOXYzine 25 MG TAB or CAP PO SCH (22:46)
[2017-11-26] MEDS: PRAZOSIN HCL 1 MG CAP PO SCH (22:47)
[2017-11-26] MEDS: LORazepam 2MG/ML-1ML VIAL IV PRN (23:20)
[2017-11-27] VITALS (105 sets, daily range): BP systolic 57–151; BP diastolic 33–99
[2017-11-27] MEDS: ALBUTEROL SULF 2.5 MG/0.5ML(0.5%) NEB SOLN NEB SCH ×6 (01:30→22:21)
[2017-11-27] MEDS: IPRATROPIUM BROM 0.5 MG/2.5ML INH SOL NEB SCH ×6 (01:30→22:21)
[2017-11-27 02:45] LABS: Basophils # (auto) 0.1 uL; Basophils % (auto) 0.3 % (0.0-2.0); Eosinophils # (auto) 0 uL; Hematocrit 38.6 % (36.0-46.0); Hemoglobin 12.5 g/dL (12.2-16.2); Lymphocytes # (auto) 0.2 uL; Lymphocytes % (auto) 0.9 % (10.0-50.0); Mean Corpuscular Hemoglobin 29.4 pg (28.0-32.0); Mean Corpuscular Hgb Conc. 32.3 g/dL (32.0-36.0); Mean Corpuscular Volume 90.9 fL (80.0-100.0); Monocytes # (auto) 1.4 uL; Monocytes % (auto) 6.2 % (0.0-12.0); Neutrophils # (auto) 20.4 uL; Neutrophils % (auto) 92.6 % (37.0-80.0); Platelet Count (auto) 419 10^3/uL (140-450); Red Blood Cells 4.24 10^6/uL (4.0-5.20); Red Cell Distribution Width 13.7 % (11.8-14.3)
[2017-11-27] MEDS: VANCOMYCIN 750 MG in D5W 5% 250 ML IV SCH ×3 (03:00→23:00)
[2017-11-27 03:20] LABS: Calcium 8.5 mg/dL (8.5-10.1); Potassium 4.5 mmol/L (3.5-5.1)
[2017-11-27 03:22] LABS: BUN/Creatinine Ratio 32.9
[2017-11-27] MEDS: SODIUM CHLOR 0.9% PF (SALINE LOCK) 10ML VIAL/SYR IV SCH ×4 (06:00→22:00)
[2017-11-27] MEDS: GABAPENTIN 300 MG CAP PO SCH (06:00)
[2017-11-27] MEDS: methylPREDNISolone SOD SUCC 40 MG/ML VL IV SCH ×3 (06:00→17:51)
[2017-11-27] MEDS: ACCU-CHEK COMFORT CURVE STRIP VI SCH ×3 (06:44→17:00)
[2017-11-27] MEDS: InsuLIN REG 1unit/0.01ml Soln (100units/ml) SC SCH ×3 (06:44→17:51)
[2017-11-27] MEDS: SODIUM CHLORIDE 0.9% 1,000 ML IV SCH (09:30)
[2017-11-27] MEDS: LOSARTAN POTASSIUM 50 MG TAB PO SCH (10:00)
[2017-11-27] MEDS: METOPROLOL TARTRATE 50 MG TAB PO SCH ×2 (10:00→11:34)
[2017-11-27] MEDS ORDERED: MICAFUNGIN SODIUM 100 MG in SODIUM CHL 0.9% 100 ML IV SCH (10:00)
[2017-11-27] MEDS: PANTOPRAZOLE 40 MG/10 ML VIAL IV SCH (10:02)
[2017-11-27] MEDS: NICOTINE 21MG/24 HR TOPICAL PATCH TD SCH (10:02)
[2017-11-27] MEDS: ENOXAPARIN SOD 40 MG/0.4 ML SYRINGE SC SCH (10:02)
[2017-11-27 11:45] LABS: Urine Bacteria MOD /hpf (None Seen); Urine Blood 2+ /uL (Negative); Urine Mucus FEW (None Seen); Urine Specific Gravity 1.019 (1.001-1.035); Urine WBC 31 /hpf (0 - 5)
[2017-11-27] MEDS: PROPOFOL 100 ML IV SCH (11:47)
[2017-11-27] MEDS: PIPERACILLIN-TAZOB 3.375GM 100 ML IV SCH ×2 (11:49→17:51)
[2017-11-27] MEDS: MIDAZOLAM DRIP 50 mg/50mL 50 ML IV SCH (13:57)
[2017-11-27] MEDS ORDERED: NOREPINEPHRINE 8 MG/250ML KIT 250 ML IV ONE (14:36)
[2017-11-27] MEDS: NOREPINEPHRINE 8 MG/250ML KIT 250 ML IV SCH (14:49)
[2017-11-27] MEDS ORDERED: LIDOCAINE 1% (LOCAL ANESTH.) PF 5ml SDV ID ONE (21:45)
[2017-11-28] VITALS (101 sets, daily range): BP systolic 82–141; BP diastolic 50–98
[2017-11-28] MEDS: ACCU-CHEK COMFORT CURVE STRIP VI SCH ×5 (00:45→23:00)
[2017-11-28] MEDS: InsuLIN REG 1unit/0.01ml Soln (100units/ml) SC SCH ×5 (00:59→23:00)
[2017-11-28] MEDS: PIPERACILLIN-TAZOB 3.375GM 100 ML IV SCH ×4 (01:00→18:25)
[2017-11-28] MEDS: IPRATROPIUM BROM 0.5 MG/2.5ML INH SOL NEB SCH ×6 (02:27→22:22)
[2017-11-28] MEDS: ALBUTEROL SULF 2.5 MG/0.5ML(0.5%) NEB SOLN NEB SCH ×6 (02:28→22:22)
[2017-11-28 03:43] LABS: Platelet Count (auto) 466 10^3/uL (140-450); Red Cell Distribution Width 13.9 % (11.8-14.3)
[2017-11-28 03:45] LABS: Hematocrit 39.2 % (36.0-46.0); Hemoglobin 12.8 g/dL (12.2-16.2); Mean Corpuscular Hgb Conc. 32.8 g/dL (32.0-36.0); Mean Corpuscular Volume 91.6 fL (80.0-100.0); Red Blood Cells 4.28 10^6/uL (4.0-5.20)
[2017-11-28 03:52] LABS: Band Neutrophils % (manual) 0; Basophils % (manual) 0 (0.0-2.0); Blast Cells 0; Eosinophils % (manual) 0 (0-7); Metamyelocytes % 0; Myelocytes % 0; Promyelocytes % 0; Reactive Lymphocytes 0; White Blood Cell 30.7 10^3/uL (4.4-10.8)
[2017-11-28 04:06] LABS: Albumin 2.3 g/dL (3.4-5.0); BUN/Creatinine Ratio 29.4; Bilirubin, Total 0.3 mg/dL (0.2-1.0); Calcium 8.8 mg/dL (8.5-10.1); Lactic Acid w/Reflex 2.7 mmol/L (0.4-2.0); Magnesium 3.1 mg/dL (1.6-2.6); Potassium 4.5 mmol/L (3.5-5.1)
[2017-11-28 04:21] LABS: Lymphocytes % (manual) 2 (10.0-50.0); Monocytes % (manual) 8 (0-12)
[2017-11-28] MEDS: methylPREDNISolone SOD SUCC 40 MG/ML VL IV SCH ×4 (06:00→23:00)
[2017-11-28] MEDS: SODIUM CHLOR 0.9% PF (SALINE LOCK) 10ML VIAL/SYR IV SCH ×5 (06:00→22:45)
[2017-11-28] MEDS: SODIUM CHLORIDE 0.9% 1,000 ML IV SCH ×2 (08:43→17:59)
[2017-11-28] MEDS: MIDAZOLAM DRIP 50 mg/50mL 50 ML IV SCH ×3 (08:43→18:25)
[2017-11-28] MEDS: PANTOPRAZOLE 40 MG/10 ML VIAL IV SCH (10:13)
[2017-11-28] MEDS: LINEZOLID 600MG/300ML 300 ML IV SCH ×2 (10:14→23:00)
[2017-11-28] MEDS: ENOXAPARIN SOD 40 MG/0.4 ML SYRINGE SC SCH (10:14)
[2017-11-28] MEDS: NICOTINE 21MG/24 HR TOPICAL PATCH TD SCH (10:16)
[2017-11-28] MEDS ORDERED: SODIUM CHLORIDE 0.9% 1,000 ML IV SCH (11:00)
[2017-11-28] MEDS: PROPOFOL 100 ML IV SCH (11:47)
[2017-11-28] MEDS: DEXAMETHASONE IV SCH (12:29)
[2017-11-28] MEDS: ONDANSETRON HCL IV SCH (12:29)
[2017-11-28] MEDS: SODIUM CHL 0.9% IV SCH ×2 (12:29→13:33)
[2017-11-28] MEDS: ALLOPURINOL 300 MG TAB PO SCH (12:47)
[2017-11-28] MEDS ORDERED: CARBOPLATIN IV ONE (13:30)
[2017-11-28] MEDS ORDERED: D5W 5% IV ONE (13:30)
[2017-11-28] MEDS: ETOPOSIDE IV SCH (13:33)
[2017-11-28] MEDS: MICAFUNGIN SODIUM 100 MG in SODIUM CHL 0.9% 100 ML IV SCH (16:10)
[2017-11-28] MEDS: NOREPINEPHRINE 8 MG/250ML KIT 250 ML IV SCH (16:15)
[2017-11-28] MEDS: fentaNYL Drip 2500mCg/250mlNS 250 ML IV SCH (19:18)
[2017-11-29] VITALS (102 sets, daily range): BP systolic 87–165; BP diastolic 53–103
[2017-11-29] MEDS: PIPERACILLIN-TAZOB 3.375GM 100 ML IV SCH ×4 (01:00→17:17)
[2017-11-29] MEDS: IPRATROPIUM BROM 0.5 MG/2.5ML INH SOL NEB SCH ×6 (02:25→22:20)
[2017-11-29] MEDS: ALBUTEROL SULF 2.5 MG/0.5ML(0.5%) NEB SOLN NEB SCH ×6 (02:25→22:20)
[2017-11-29 03:52] LABS: Basophils # (auto) 0 uL; Basophils % (auto) 0.1 % (0.0-2.0); Eosinophils # (auto) 0 uL; Hematocrit 36.4 % (36.0-46.0); Lymphocytes # (auto) 0.2 uL; Lymphocytes % (auto) 0.7 % (10.0-50.0); Mean Corpuscular Hemoglobin 29.6 pg (28.0-32.0); Mean Corpuscular Hgb Conc. 32.9 g/dL (32.0-36.0); Monocytes % (auto) 4.5 % (0.0-12.0); Neutrophils % (auto) 94.7 % (37.0-80.0); Nucleated Red Blood Cells % 0.2 %; Platelet Count (auto) 388 10^3/uL (140-450); Red Blood Cells 4.04 10^6/uL (4.0-5.20); White Blood Cell 22.2 10^3/uL (4.4-10.8)
[2017-11-29 04:07] LABS: Lactic Acid w/Reflex 3.1 mmol/L (0.4-2.0)
[2017-11-29 04:10] LABS: Albumin 1.8 g/dL (3.4-5.0); BUN/Creatinine Ratio 29.2; Bilirubin, Total 0.3 mg/dL (0.2-1.0); Calcium 8.7 mg/dL (8.5-10.1); Magnesium 2.7 mg/dL (1.6-2.6); Potassium 4.3 mmol/L (3.5-5.1); Total Protein 5.7 g/dL (6.4-8.2); Uric Acid 2.3 mg/dL (2.6-6.0)
[2017-11-29] MEDS: SODIUM CHLOR 0.9% PF (SALINE LOCK) 10ML VIAL/SYR IV SCH ×5 (05:54→21:56)
[2017-11-29] MEDS: ACCU-CHEK COMFORT CURVE STRIP VI SCH ×4 (06:30→22:03)
[2017-11-29] MEDS: InsuLIN REG 1unit/0.01ml Soln (100units/ml) SC SCH ×4 (07:00→22:08)
[2017-11-29] MEDS: MICAFUNGIN SODIUM 100 MG in SODIUM CHL 0.9% 100 ML IV SCH (08:35)
[2017-11-29] MEDS: PANTOPRAZOLE 40 MG/10 ML VIAL IV SCH (09:52)
[2017-11-29] MEDS: ENOXAPARIN SOD 40 MG/0.4 ML SYRINGE SC SCH (09:53)
[2017-11-29] MEDS: methylPREDNISolone SOD SUCC 40 MG/ML VL IV SCH ×2 (09:53→22:03)
[2017-11-29] MEDS: NICOTINE 21MG/24 HR TOPICAL PATCH TD SCH (09:54)
[2017-11-29] MEDS: LINEZOLID 600MG/300ML 300 ML IV SCH ×2 (09:55→21:56)
[2017-11-29] MEDS: ALLOPURINOL 300 MG TAB PO SCH (09:55)
[2017-11-29] MEDS: SODIUM CHLORIDE 0.9% 1,000 ML IV SCH ×3 (10:14→23:00)
[2017-11-29] MEDS: MIDAZOLAM DRIP 50 mg/50mL 50 ML IV SCH ×3 (10:15→19:24)
[2017-11-29] MEDS: fentaNYL Drip 2500mCg/250mlNS 250 ML IV SCH ×2 (10:15→23:39)
[2017-11-29] MEDS: PROPOFOL 100 ML IV SCH (11:09)
[2017-11-29] MEDS: ONDANSETRON HCL IV SCH (13:29)
[2017-11-29] MEDS: DEXAMETHASONE IV SCH (13:29)
[2017-11-29] MEDS: SODIUM CHL 0.9% IV SCH ×2 (13:29→14:15)
[2017-11-29] MEDS: ETOPOSIDE IV SCH (14:15)
[2017-11-29] MEDS: NOREPINEPHRINE 8 MG/250ML KIT 250 ML IV SCH (14:49)
[2017-11-29] MEDS: Nutren Pulmonary 1 Liter GT SCH (23:14)
[2017-11-30] VITALS (107 sets, daily range): BP systolic 74–218; BP diastolic 42–127
[2017-11-30] MEDS: PIPERACILLIN-TAZOB 3.375GM 100 ML IV SCH ×4 (00:12→18:13)
[2017-11-30] MEDS: MIDAZOLAM DRIP 50 mg/50mL 50 ML IV SCH ×6 (00:50→21:52)
[2017-11-30] MEDS: IPRATROPIUM BROM 0.5 MG/2.5ML INH SOL NEB SCH ×5 (02:37→22:17)
[2017-11-30] MEDS: ALBUTEROL SULF 2.5 MG/0.5ML(0.5%) NEB SOLN NEB SCH ×6 (02:38→22:17)
[2017-11-30 03:44] LABS: Hematocrit 35.4 % (36.0-46.0); Hemoglobin 11.8 g/dL (12.2-16.2); Mean Corpuscular Hemoglobin 29.9 pg (28.0-32.0); Mean Corpuscular Hgb Conc. 33.3 g/dL (32.0-36.0); Mean Corpuscular Volume 89.6 fL (80.0-100.0); Platelet Count (auto) 409 10^3/uL (140-450); Red Blood Cells 3.95 10^6/uL (4.0-5.20); Red Cell Distribution Width 14.4 % (11.8-14.3); White Blood Cell 18.7 10^3/uL (4.4-10.8)
[2017-11-30 03:47] LABS: Band Neutrophils % (manual) 0; Basophils % (manual) 0 (0.0-2.0); Blast Cells 0; Eosinophils % (manual) 0 (0-7); Metamyelocytes % 0; Myelocytes % 0; Promyelocytes % 0; Reactive Lymphocytes 0
[2017-11-30 03:57] LABS: Lactic Acid w/Reflex 2.3 mmol/L (0.4-2.0)
[2017-11-30 04:07] LABS: Albumin 1.7 g/dL (3.4-5.0); Bilirubin, Total 0.3 mg/dL (0.2-1.0); Calcium 8.5 mg/dL (8.5-10.1); Potassium 4.4 mmol/L (3.5-5.1); Total Protein 5.7 g/dL (6.4-8.2); Uric Acid 2.2 mg/dL (2.6-6.0)
[2017-11-30 04:41] LABS: Lymphocytes % (manual) 1 (10.0-50.0); Monocytes % (manual) 1 (0-12)
[2017-11-30] MEDS: PROPOFOL 100 ML IV SCH ×2 (04:56→18:14)
[2017-11-30] MEDS: SODIUM CHLORIDE 0.9% 1,000 ML IV SCH (05:11)
[2017-11-30] MEDS: SODIUM CHLOR 0.9% PF (SALINE LOCK) 10ML VIAL/SYR IV SCH ×5 (06:52→21:33)
[2017-11-30] MEDS: ACCU-CHEK COMFORT CURVE STRIP VI SCH ×4 (06:55→21:34)
[2017-11-30] MEDS: InsuLIN REG 1unit/0.01ml Soln (100units/ml) SC SCH ×4 (06:57→21:43)
[2017-11-30] MEDS: MICAFUNGIN SODIUM 100 MG in SODIUM CHL 0.9% 100 ML IV SCH (09:23)
[2017-11-30] MEDS: methylPREDNISolone SOD SUCC 40 MG/ML VL IV SCH ×2 (10:20→21:33)
[2017-11-30] MEDS: PANTOPRAZOLE 40 MG/10 ML VIAL IV SCH (10:20)
[2017-11-30] MEDS: ENOXAPARIN SOD 40 MG/0.4 ML SYRINGE SC SCH (10:21)
[2017-11-30] MEDS: ALLOPURINOL 300 MG TAB PO SCH (10:21)
[2017-11-30] MEDS: NICOTINE 21MG/24 HR TOPICAL PATCH TD SCH (10:21)
[2017-11-30] MEDS: LINEZOLID 600MG/300ML 300 ML IV SCH ×2 (10:21→21:33)
[2017-11-30] MEDS: ONDANSETRON HCL IV SCH (13:00)
[2017-11-30] MEDS: DEXAMETHASONE IV SCH (13:00)
[2017-11-30] MEDS: SODIUM CHL 0.9% IV SCH ×2 (13:00→13:47)
[2017-11-30] MEDS: ETOPOSIDE IV SCH (13:47)
[2017-11-30] MEDS: fentaNYL Drip 2500mCg/250mlNS 250 ML IV SCH (15:57)
[2017-11-30] MEDS ORDERED: LEVOFLOXACIN 750MG 150 ML IV ONE (16:45)
[2017-11-30] MEDS: NOREPINEPHRINE 8 MG/250ML KIT 250 ML IV SCH (21:30)
[2017-12-01] VITALS (106 sets, daily range): BP systolic 80–159; BP diastolic 43–106
[2017-12-01] MEDS: PIPERACILLIN-TAZOB 3.375GM 100 ML IV SCH ×4 (00:26→17:50)
[2017-12-01] MEDS: ALBUTEROL SULF 2.5 MG/0.5ML(0.5%) NEB SOLN NEB SCH ×6 (02:11→22:16)
[2017-12-01] MEDS: IPRATROPIUM BROM 0.5 MG/2.5ML INH SOL NEB SCH ×6 (02:11→22:16)
[2017-12-01] MEDS: Nutren Pulmonary 1 Liter GT SCH (02:17)
[2017-12-01] MEDS: SODIUM CHLORIDE 0.9% 1,000 ML IV SCH ×3 (02:18→10:37)
[2017-12-01 05:05] LABS: Hemoglobin 11.3 g/dL (12.2-16.2); Mean Corpuscular Hemoglobin 30.3 pg (28.0-32.0); Mean Corpuscular Hgb Conc. 33.3 g/dL (32.0-36.0); Mean Corpuscular Volume 91.1 fL (80.0-100.0); Platelet Count (auto) 371 10^3/uL (140-450); Red Blood Cells 3.73 10^6/uL (4.0-5.20); Red Cell Distribution Width 14.1 % (11.8-14.3); White Blood Cell 13.8 10^3/uL (4.4-10.8)
[2017-12-01 05:07] LABS: Band Neutrophils % (manual) 0; Basophils % (manual) 0 (0.0-2.0); Blast Cells 0; Eosinophils % (manual) 0 (0-7); Metamyelocytes % 0; Monocytes % (manual) 0 (0-12); Myelocytes % 0; Promyelocytes % 0; Reactive Lymphocytes 0
[2017-12-01 05:17] LABS: Lymphocytes % (manual) 2 (10.0-50.0)
[2017-12-01 05:22] LABS: Albumin 1.5 g/dL (3.4-5.0); BUN/Creatinine Ratio 36.9; Bilirubin, Total 0.3 mg/dL (0.2-1.0); Calcium 7.9 mg/dL (8.5-10.1); Magnesium 2.6 mg/dL (1.6-2.6); Potassium 4.7 mmol/L (3.5-5.1); Total Protein 5.2 g/dL (6.4-8.2); Uric Acid 1.8 mg/dL (2.6-6.0)
[2017-12-01] MEDS: fentaNYL Drip 2500mCg/250mlNS 250 ML IV SCH ×2 (05:25→18:34)
[2017-12-01] MEDS: SODIUM CHLOR 0.9% PF (SALINE LOCK) 10ML VIAL/SYR IV SCH ×5 (06:25→22:00)
[2017-12-01] MEDS: ACCU-CHEK COMFORT CURVE STRIP VI SCH ×4 (06:25→22:00)
[2017-12-01] MEDS: MIDAZOLAM DRIP 50 mg/50mL 50 ML IV SCH ×4 (06:39→18:34)
[2017-12-01] MEDS: InsuLIN REG 1unit/0.01ml Soln (100units/ml) SC SCH ×4 (06:39→22:00)
[2017-12-01] MEDS: PROPOFOL 100 ML IV SCH ×2 (06:39→15:00)
[2017-12-01] MEDS: LEVOFLOXACIN 750MG 150 ML IV SCH (10:00)
[2017-12-01] MEDS: NICOTINE 21MG/24 HR TOPICAL PATCH TD SCH (10:00)
[2017-12-01] MEDS ORDERED: FLORASTOR (S. BOULARDII) 250 MG CAP PO ONE (10:11)
[2017-12-01] MEDS ORDERED: DOCUSATE SOD 100 MG CAP PO PRN (10:15)
[2017-12-01] MEDS ORDERED: ONDANSETRON HCL 4 MG/2 ML VIAL IV PRN (10:15)
[2017-12-01] MEDS ORDERED: ACETAMINOPHEN 325 MG TAB PO PRN (10:15)
[2017-12-01] MEDS: PANTOPRAZOLE 40 MG/10 ML VIAL IV SCH (10:28)
[2017-12-01] MEDS: methylPREDNISolone SOD SUCC 40 MG/ML VL IV SCH ×2 (10:29→22:53)
[2017-12-01] MEDS: ALLOPURINOL 300 MG TAB PO SCH (10:30)
[2017-12-01] MEDS: LINEZOLID 600MG/300ML 300 ML IV SCH ×2 (10:30→22:53)
[2017-12-01] MEDS: MICAFUNGIN SODIUM 100 MG in SODIUM CHL 0.9% 100 ML IV SCH (10:30)
[2017-12-01] MEDS: ENOXAPARIN SOD 40 MG/0.4 ML SYRINGE SC SCH (10:30)
[2017-12-01] MEDS ORDERED: FUROSEMIDE 40 MG/4 ML VIAL IV ONE (13:45)
[2017-12-01] MEDS: NOREPINEPHRINE 8 MG/250ML KIT 250 ML IV SCH (14:49)
[2017-12-02] VITALS (103 sets, daily range): BP systolic 78–193; BP diastolic 34–114
[2017-12-02] MEDS: PIPERACILLIN-TAZOB 3.375GM 100 ML IV SCH ×4 (00:26→17:38)
[2017-12-02] MEDS: SODIUM CHLORIDE 0.9% 1,000 ML IV SCH ×2 (00:33→14:51)
[2017-12-02] MEDS: ALBUTEROL SULF 2.5 MG/0.5ML(0.5%) NEB SOLN NEB SCH ×6 (02:34→22:37)
[2017-12-02] MEDS: IPRATROPIUM BROM 0.5 MG/2.5ML INH SOL NEB SCH ×6 (02:34→22:37)
[2017-12-02 04:20] LABS: Basophils # (auto) 0 uL; Basophils % (auto) 0.1 % (0.0-2.0); Eosinophils # (auto) 0 uL; Hematocrit 35.4 % (36.0-46.0); Hemoglobin 11.7 g/dL (12.2-16.2); Lymphocytes # (auto) 0.1 uL; Lymphocytes % (auto) 1.1 % (10.0-50.0); Mean Corpuscular Hemoglobin 30.4 pg (28.0-32.0); Mean Corpuscular Volume 91.9 fL (80.0-100.0); Monocytes # (auto) 0 uL; Monocytes % (auto) 0.1 % (0.0-12.0); Neutrophils # (auto) 12.6 uL; Neutrophils % (auto) 98.7 % (37.0-80.0); Platelet Count (auto) 345 10^3/uL (140-450); Red Blood Cells 3.86 10^6/uL (4.0-5.20); Red Cell Distribution Width 13.9 % (11.8-14.3); White Blood Cell 12.8 10^3/uL (4.4-10.8)
[2017-12-02 04:38] LABS: Albumin 1.6 g/dL (3.4-5.0); BUN/Creatinine Ratio 42.3; Bilirubin, Total 0.4 mg/dL (0.2-1.0); Calcium 7.8 mg/dL (8.5-10.1); Magnesium 2.6 mg/dL (1.6-2.6); Total Protein 5.3 g/dL (6.4-8.2); Uric Acid 1.6 mg/dL (2.6-6.0)
[2017-12-02 04:42] LABS: Potassium 4.7 mmol/L (3.5-5.1)
[2017-12-02] MEDS: SODIUM CHLOR 0.9% PF (SALINE LOCK) 10ML VIAL/SYR IV SCH ×5 (06:08→22:00)
[2017-12-02] MEDS: InsuLIN REG 1unit/0.01ml Soln (100units/ml) SC SCH ×4 (07:00→22:00)
[2017-12-02] MEDS: ACCU-CHEK COMFORT CURVE STRIP VI SCH ×4 (07:00→22:00)
[2017-12-02] MEDS: MICAFUNGIN SODIUM 100 MG in SODIUM CHL 0.9% 100 ML IV SCH (09:06)
[2017-12-02] MEDS: PROPOFOL 100 ML IV SCH ×2 (09:06→15:31)
[2017-12-02] MEDS: NOREPINEPHRINE 8 MG/250ML KIT 250 ML IV SCH (09:07)
[2017-12-02] MEDS: MIDAZOLAM DRIP 50 mg/50mL 50 ML IV SCH ×3 (09:07→18:48)
[2017-12-02] MEDS: methylPREDNISolone SOD SUCC 40 MG/ML VL IV SCH ×2 (10:27→22:58)
[2017-12-02] MEDS: LEVOFLOXACIN 750MG 150 ML IV SCH (10:27)
[2017-12-02] MEDS: FLORASTOR (S. BOULARDII) 250 MG CAP PO SCH (10:27)
[2017-12-02] MEDS: ALLOPURINOL 300 MG TAB PO SCH (10:27)
[2017-12-02] MEDS: PANTOPRAZOLE 40 MG/10 ML VIAL IV SCH (10:27)
[2017-12-02] MEDS: LINEZOLID 600MG/300ML 300 ML IV SCH ×2 (10:27→22:58)
[2017-12-02] MEDS: NICOTINE 21MG/24 HR TOPICAL PATCH TD SCH (10:28)
[2017-12-02] MEDS: fentaNYL Drip 2500mCg/250mlNS 250 ML IV SCH (12:33)
[2017-12-03] VITALS (87 sets, daily range): BP systolic 61–212; BP diastolic 36–118
[2017-12-03] MEDS: IPRATROPIUM BROM 0.5 MG/2.5ML INH SOL NEB SCH ×6 (02:23→22:26)
[2017-12-03] MEDS: ALBUTEROL SULF 2.5 MG/0.5ML(0.5%) NEB SOLN NEB SCH ×6 (02:23→22:25)
[2017-12-03 04:52] LABS: Basophils # (auto) 0 uL; Basophils % (auto) 0.1 % (0.0-2.0); Eosinophils # (auto) 0 uL; Hematocrit 38.9 % (36.0-46.0); Hemoglobin 12.9 g/dL (12.2-16.2); Lymphocytes # (auto) 0.2 uL; Lymphocytes % (auto) 1.5 % (10.0-50.0); Mean Corpuscular Hemoglobin 30.3 pg (28.0-32.0); Mean Corpuscular Hgb Conc. 33.1 g/dL (32.0-36.0); Mean Corpuscular Volume 91.5 fL (80.0-100.0); Monocytes # (auto) 0 uL; Monocytes % (auto) 0.1 % (0.0-12.0); Neutrophils # (auto) 12.2 uL; Neutrophils % (auto) 98.3 % (37.0-80.0); Platelet Count (auto) 257 10^3/uL (140-450); Red Blood Cells 4.26 10^6/uL (4.0-5.20); White Blood Cell 12.4 10^3/uL (4.4-10.8)
[2017-12-03] MEDS: SODIUM CHLORIDE 0.9% 1,000 ML IV SCH ×2 (05:09→19:27)
[2017-12-03 05:18] LABS: Albumin 1.7 g/dL (3.4-5.0); BUN/Creatinine Ratio 49.2; Bilirubin, Total 0.8 mg/dL (0.2-1.0); Calcium 7.8 mg/dL (8.5-10.1); Potassium 4.2 mmol/L (3.5-5.1); Total Protein 5.1 g/dL (6.4-8.2)
[2017-12-03] MEDS: SODIUM CHLOR 0.9% PF (SALINE LOCK) 10ML VIAL/SYR IV SCH ×5 (06:00→21:56)
[2017-12-03] MEDS: PIPERACILLIN-TAZOB 3.375GM 100 ML IV SCH ×4 (06:00→17:59)
[2017-12-03] MEDS: ACCU-CHEK COMFORT CURVE STRIP VI SCH ×4 (07:10→21:57)
[2017-12-03] MEDS: InsuLIN REG 1unit/0.01ml Soln (100units/ml) SC SCH ×4 (07:10→21:57)
[2017-12-03] MEDS: PROPOFOL 100 ML IV SCH ×2 (09:15→15:37)
[2017-12-03] MEDS: MICAFUNGIN SODIUM 100 MG in SODIUM CHL 0.9% 100 ML IV SCH (09:15)
[2017-12-03] MEDS: MIDAZOLAM DRIP 50 mg/50mL 50 ML IV SCH ×2 (09:19→15:38)
[2017-12-03] MEDS: methylPREDNISolone SOD SUCC 40 MG/ML VL IV SCH ×2 (10:00→21:56)
[2017-12-03] MEDS: PANTOPRAZOLE 40 MG/10 ML VIAL IV SCH (10:00)
[2017-12-03] MEDS: ALLOPURINOL 300 MG TAB PO SCH (10:00)
[2017-12-03] MEDS: LEVOFLOXACIN 750MG 150 ML IV SCH (10:00)
[2017-12-03] MEDS: NICOTINE 21MG/24 HR TOPICAL PATCH TD SCH (10:00)
[2017-12-03] MEDS: FLORASTOR (S. BOULARDII) 250 MG CAP PO SCH (10:00)
[2017-12-03] MEDS: ENOXAPARIN SOD 40 MG/0.4 ML SYRINGE SC SCH (10:00)
[2017-12-03] MEDS: LINEZOLID 600MG/300ML 300 ML IV SCH ×2 (10:00→21:56)
[2017-12-03] MEDS: NOREPINEPHRINE 8 MG/250ML KIT 250 ML IV SCH ×2 (14:49→20:29)
[2017-12-03] MEDS: fentaNYL Drip 2500mCg/250mlNS 250 ML IV SCH (19:56)
[2017-12-04] VITALS (101 sets, daily range): BP systolic 69–187; BP diastolic 39–108
[2017-12-04] MEDS: IPRATROPIUM BROM 0.5 MG/2.5ML INH SOL NEB SCH ×6 (02:01→22:05)
[2017-12-04] MEDS: ALBUTEROL SULF 2.5 MG/0.5ML(0.5%) NEB SOLN NEB SCH ×6 (02:02→22:05)
[2017-12-04] MEDS: MIDAZOLAM DRIP 50 mg/50mL 50 ML IV SCH ×6 (02:16→22:13)
[2017-12-04] MEDS: PROPOFOL 100 ML IV SCH ×4 (02:16→22:13)
[2017-12-04 04:16] LABS: Basophils # (auto) 0 uL; Basophils % (auto) 0.1 % (0.0-2.0); Eosinophils # (auto) 0 uL; Hematocrit 32.4 % (36.0-46.0); Lymphocytes # (auto) 0.4 uL; Lymphocytes % (auto) 3.7 % (10.0-50.0); Mean Corpuscular Hemoglobin 30.8 pg (28.0-32.0); Mean Corpuscular Hgb Conc. 34.1 g/dL (32.0-36.0); Mean Corpuscular Volume 90.5 fL (80.0-100.0); Monocytes # (auto) 0 uL; Monocytes % (auto) 0.3 % (0.0-12.0); Neutrophils # (auto) 9.7 uL; Neutrophils % (auto) 95.9 % (37.0-80.0); Platelet Count (auto) 232 10^3/uL (140-450); Red Blood Cells 3.58 10^6/uL (4.0-5.20); Red Cell Distribution Width 13.9 % (11.8-14.3); White Blood Cell 10.1 10^3/uL (4.4-10.8)
[2017-12-04 04:22] LABS: Albumin 1.5 g/dL (3.4-5.0); BUN/Creatinine Ratio 50.9; Calcium 7.3 mg/dL (8.5-10.1); Potassium 4.1 mmol/L (3.5-5.1)
[2017-12-04 04:25] LABS: Bilirubin, Total 0.5 mg/dL (0.2-1.0); Total Protein 4.4 g/dL (6.4-8.2)
[2017-12-04] MEDS: SODIUM CHLOR 0.9% PF (SALINE LOCK) 10ML VIAL/SYR IV SCH ×5 (05:54→22:00)
[2017-12-04] MEDS: PIPERACILLIN-TAZOB 3.375GM 100 ML IV SCH ×2 (06:00)
[2017-12-04] MEDS: fentaNYL Drip 2500mCg/250mlNS 250 ML IV SCH (07:10)
[2017-12-04] MEDS: ACCU-CHEK COMFORT CURVE STRIP VI SCH ×4 (07:23→22:00)
[2017-12-04] MEDS: InsuLIN REG 1unit/0.01ml Soln (100units/ml) SC SCH ×4 (07:23→22:00)
[2017-12-04] MEDS: MICAFUNGIN SODIUM 100 MG in SODIUM CHL 0.9% 100 ML IV SCH (09:00)
[2017-12-04] MEDS: methylPREDNISolone SOD SUCC 40 MG/ML VL IV SCH (10:22)
[2017-12-04] MEDS: PANTOPRAZOLE 40 MG/10 ML VIAL IV SCH (10:22)
[2017-12-04] MEDS: ENOXAPARIN SOD 40 MG/0.4 ML SYRINGE SC SCH (10:22)
[2017-12-04] MEDS: ALLOPURINOL 300 MG TAB PO SCH (10:22)
[2017-12-04] MEDS: FLORASTOR (S. BOULARDII) 250 MG CAP PO SCH (10:22)
[2017-12-04] MEDS: LINEZOLID 600MG/300ML 300 ML IV SCH ×2 (10:23→22:49)
[2017-12-04] MEDS: LEVOFLOXACIN 750MG 150 ML IV SCH (10:23)
[2017-12-04] MEDS: SODIUM CHLORIDE 0.9% 1,000 ML IV SCH (10:23)
[2017-12-04] MEDS: NICOTINE 21MG/24 HR TOPICAL PATCH TD SCH (10:23)
[2017-12-04] MEDS ORDERED: DEXTROSE (50%) 50ML SYRG IV PRN (11:15)
[2017-12-04] MEDS: metroNIDAZOLE 500MG/100ML 100 ML IV SCH ×2 (14:05→22:43)
[2017-12-05] VITALS (71 sets, daily range): BP systolic 83–190; BP diastolic 50–140
[2017-12-05] MEDS: SODIUM CHLORIDE 0.9% 1,000 ML IV SCH (00:03)
[2017-12-05] MEDS: ALBUTEROL SULF 2.5 MG/0.5ML(0.5%) NEB SOLN NEB SCH ×6 (02:07→22:22)
[2017-12-05] MEDS: IPRATROPIUM BROM 0.5 MG/2.5ML INH SOL NEB SCH ×6 (02:07→22:22)
[2017-12-05] MEDS: MIDAZOLAM DRIP 50 mg/50mL 50 ML IV SCH (02:24)
[2017-12-05] MEDS: PROPOFOL 100 ML IV SCH (03:47)
[2017-12-05 04:21] LABS: Basophils # (auto) 0 uL; Eosinophils # (auto) 0 uL; Eosinophils % (auto) 0.2 % (0.0-7.0); Hematocrit 30.8 % (36.0-46.0); Hemoglobin 10.6 g/dL (12.2-16.2); Lymphocytes # (auto) 1.3 uL; Lymphocytes % (auto) 33.5 % (10.0-50.0); Mean Corpuscular Hemoglobin 31.2 pg (28.0-32.0); Mean Corpuscular Hgb Conc. 34.4 g/dL (32.0-36.0); Mean Corpuscular Volume 90.5 fL (80.0-100.0); Monocytes # (auto) 0 uL; Monocytes % (auto) 0.2 % (0.0-12.0); Neutrophils # (auto) 2.6 uL; Neutrophils % (auto) 66.1 % (37.0-80.0); Nucleated Red Blood Cells % 0.1 %; Platelet Count (auto) 177 10^3/uL (140-450); Red Blood Cells 3.41 10^6/uL (4.0-5.20); Red Cell Distribution Width 13.7 % (11.8-14.3); White Blood Cell 3.9 10^3/uL (4.4-10.8)
[2017-12-05 04:32] LABS: Albumin 1.7 g/dL (3.4-5.0); BUN/Creatinine Ratio 42.3; Bilirubin, Total 0.6 mg/dL (0.2-1.0); Calcium 7.5 mg/dL (8.5-10.1); Magnesium 2.5 mg/dL (1.6-2.6); Potassium 3.6 mmol/L (3.5-5.1); Total Protein 4.5 g/dL (6.4-8.2); Uric Acid 1.4 mg/dL (2.6-6.0)
[2017-12-05] MEDS: metroNIDAZOLE 500MG/100ML 100 ML IV SCH ×3 (06:16→21:43)
[2017-12-05] MEDS: ACCU-CHEK COMFORT CURVE STRIP VI SCH ×4 (06:16→22:06)
[2017-12-05] MEDS: InsuLIN REG 1unit/0.01ml Soln (100units/ml) SC SCH ×4 (06:16→22:06)
[2017-12-05] MEDS: SODIUM CHLOR 0.9% PF (SALINE LOCK) 10ML VIAL/SYR IV SCH ×4 (06:16→21:42)
[2017-12-05] MEDS: MICAFUNGIN SODIUM 100 MG in SODIUM CHL 0.9% 100 ML IV SCH (09:12)
[2017-12-05] MEDS: PANTOPRAZOLE 40 MG/10 ML VIAL IV SCH (09:13)
[2017-12-05] MEDS: LEVOFLOXACIN 750MG 150 ML IV SCH (09:13)
[2017-12-05] MEDS: FLORASTOR (S. BOULARDII) 250 MG CAP PO SCH (09:36)
[2017-12-05] MEDS: ENOXAPARIN SOD 40 MG/0.4 ML SYRINGE SC SCH (09:36)
[2017-12-05] MEDS: NICOTINE 21MG/24 HR TOPICAL PATCH TD SCH (09:37)
[2017-12-05] MEDS: ALLOPURINOL 300 MG TAB PO SCH (09:45)
[2017-12-05] MEDS: LINEZOLID 600MG/300ML 300 ML IV SCH ×2 (10:00→21:42)
[2017-12-05] MEDS ORDERED: methylPREDNISolone SOD SUCC 40 MG/ML VL IV SCH (10:00)
[2017-12-05] MEDS ORDERED: LORazepam 2MG/ML-1ML VIAL ONE (10:09)
[2017-12-05] MEDS ORDERED: LORazepam 2MG/ML-1ML VIAL IV ONE (10:30)
[2017-12-05] MEDS ORDERED: HYDROmorphone HCL 2 MG/ML VL IV ONE (10:45)
[2017-12-05] MEDS ORDERED: HYDROmorphone HCL 2 MG/ML VL ONE (10:48)
[2017-12-05] MEDS ORDERED: EPINEPHrine HCL 0.5 ML NEB ONE (11:34)
[2017-12-05] MEDS ORDERED: EPINEPHrine HCL 0.5 ML NEB NEB ONE (11:45)
[2017-12-05] MEDS: LABETALOL HCL 5 MG/ML ML 20ML VIAL IV PRN ×4 (11:50→17:58)
[2017-12-05] MEDS: fentaNYL Drip 2500mCg/250mlNS 250 ML IV SCH (13:16)
[2017-12-05] MEDS ORDERED: hydrALAZINE HCL 20 MG/ML VL ONE (13:32)
[2017-12-05] MEDS: hydrALAZINE HCL 20 MG/ML VL IV PRN ×2 (13:38→20:00)
[2017-12-05] MEDS: LORazepam 2MG/ML-1ML VIAL IV PRN ×2 (17:20→23:30)
[2017-12-05] MEDS: NOREPINEPHRINE 8 MG/250ML KIT 250 ML IV SCH (17:47)
[2017-12-05] MEDS ORDERED: FUROSEMIDE 20 MG/2 ML VIAL IV ONE ×2 (18:30→21:45)
[2017-12-05] MEDS: NICARDIPINE 25MG/250ML BAG KIT 250 ML IV SCH (19:15)
[2017-12-05] MEDS: MORPHINE SULF INJ 2 MG/ML SYRINGE 1ML IV PRN (19:25)
[2017-12-05] MEDS ORDERED: FUROSEMIDE 20 MG/2 ML VIAL ONE (21:40)
[2017-12-05] MEDS: methylPREDNISolone SOD SUCC 40 MG/ML VL IV SCH (21:42)
[2017-12-06] VITALS (91 sets, daily range): BP systolic 66–174; BP diastolic 19–116
[2017-12-06] MEDS: NICARDIPINE 25MG/250ML BAG KIT 250 ML IV SCH ×3 (00:15→10:15)
[2017-12-06] MEDS: MORPHINE SULF INJ 2 MG/ML SYRINGE 1ML IV PRN ×2 (01:49→16:30)
[2017-12-06] MEDS: IPRATROPIUM BROM 0.5 MG/2.5ML INH SOL NEB SCH ×6 (02:35→22:15)
[2017-12-06] MEDS: ALBUTEROL SULF 2.5 MG/0.5ML(0.5%) NEB SOLN NEB SCH ×5 (02:35→22:15)
[2017-12-06] MEDS ORDERED: ETOMIDATE (2MG/ML) 20ML VIAL IV ONE ×2 (02:56→03:03)
[2017-12-06] MEDS ORDERED: SUCCINYLCHOLINE CHLORIDE 20 MG/ML 10ML VIAL IV ONE ×2 (02:57→03:04)
[2017-12-06] MEDS: MIDAZOLAM DRIP 50 mg/50mL 50 ML IV SCH ×5 (03:10→23:29)
[2017-12-06] MEDS ORDERED: PROPOFOL 100 ML IV ONE (03:26)
[2017-12-06] MEDS: PROPOFOL 100 ML IV SCH ×3 (03:30→23:29)
[2017-12-06 04:30] LABS: Basophils # (auto) 0 uL; Eosinophils # (auto) 0 uL; Hematocrit 37.5 % (36.0-46.0); Lymphocytes # (auto) 0.2 uL; Mean Corpuscular Hgb Conc. 33.8 g/dL (32.0-36.0); Monocytes # (auto) 0 uL; Neutrophils # (auto) 0.3 uL
[2017-12-06 04:32] LABS: Basophils % (auto) 0.2 % (0.0-2.0); Eosinophils % (auto) 0.2 % (0.0-7.0); Hemoglobin 12.7 g/dL (12.2-16.2); Lymphocytes % (auto) 44.6 % (10.0-50.0); Mean Corpuscular Hemoglobin 30.7 pg (28.0-32.0); Mean Corpuscular Volume 90.8 fL (80.0-100.0); Monocytes % (auto) 0.6 % (0.0-12.0); Neutrophils % (auto) 54.4 % (37.0-80.0); Nucleated Red Blood Cells % 0.6 %; Platelet Count (auto) 106 10^3/uL (140-450); Red Blood Cells 4.12 10^6/uL (4.0-5.20); Red Cell Distribution Width 13.7 % (11.8-14.3)
[2017-12-06] MEDS: SODIUM CHLORIDE 0.9% 1,000 ML IV SCH ×2 (04:39→18:15)
[2017-12-06 04:50] LABS: Albumin 2.1 g/dL (3.4-5.0); BUN/Creatinine Ratio 55.8; Bilirubin, Total 0.7 mg/dL (0.2-1.0); Calcium 7.8 mg/dL (8.5-10.1); Potassium 3.5 mmol/L (3.5-5.1); Total Protein 5.3 g/dL (6.4-8.2)
[2017-12-06 05:08] LABS: White Blood Cell 0.5 10^3/uL (4.4-10.8)
[2017-12-06] MEDS: SODIUM CHLOR 0.9% PF (SALINE LOCK) 10ML VIAL/SYR IV SCH ×3 (06:04→22:19)
[2017-12-06] MEDS: metroNIDAZOLE 500MG/100ML 100 ML IV SCH (06:05)
[2017-12-06] MEDS: InsuLIN REG 1unit/0.01ml Soln (100units/ml) SC SCH ×4 (06:40→22:00)
[2017-12-06] MEDS: ACCU-CHEK COMFORT CURVE STRIP VI SCH ×4 (06:40→22:18)
[2017-12-06] MEDS: MICAFUNGIN SODIUM 100 MG in SODIUM CHL 0.9% 100 ML IV SCH (09:17)
[2017-12-06] MEDS: NICOTINE 21MG/24 HR TOPICAL PATCH TD SCH (10:00)
[2017-12-06] MEDS: methylPREDNISolone SOD SUCC 40 MG/ML VL IV SCH ×2 (10:30→22:18)
[2017-12-06] MEDS: PANTOPRAZOLE 40 MG/10 ML VIAL IV SCH (10:30)
[2017-12-06] MEDS: ALLOPURINOL 300 MG TAB PO SCH (10:30)
[2017-12-06] MEDS: LEVOFLOXACIN 750MG 150 ML IV SCH (10:30)
[2017-12-06] MEDS: ENOXAPARIN SOD 40 MG/0.4 ML SYRINGE SC SCH (10:30)
[2017-12-06] MEDS: fentaNYL Drip 2500mCg/250mlNS 250 ML IV SCH (11:53)
[2017-12-06 12:48] LABS: INR 1.05 (0.9-1.15); Partial Thromboplastin Time 31.2 sec (23.78-33.04); Prothrombin Time 11.2 sec (9.27-12.13)
[2017-12-06] MEDS: FILGRASTIM(TBO) 480 MCG/0.8 ML SYRG SC SCH (14:46)
[2017-12-07] VITALS (102 sets, daily range): BP systolic 93–151; BP diastolic 49–103
[2017-12-07] MEDS: ALBUTEROL SULF 2.5 MG/0.5ML(0.5%) NEB SOLN NEB SCH ×6 (02:00→22:09)
[2017-12-07] MEDS: IPRATROPIUM BROM 0.5 MG/2.5ML INH SOL NEB SCH ×6 (02:09→22:09)
[2017-12-07] MEDS: MIDAZOLAM DRIP 50 mg/50mL 50 ML IV SCH ×4 (05:24→23:15)
[2017-12-07 05:43] LABS: Basophils # (auto) 0 uL; Eosinophils # (auto) 0 uL; Lymphocytes # (auto) 0.4 uL; Monocytes # (auto) 0 uL; Neutrophils # (auto) 0 uL; Platelet Count (auto) 70 10^3/uL (140-450); Red Cell Distribution Width 13.3 % (11.8-14.3)
[2017-12-07 05:45] LABS: Eosinophils % (auto) 1.4 % (0.0-7.0); Hematocrit 32.5 % (36.0-46.0); Mean Corpuscular Hemoglobin 30.6 pg (28.0-32.0); Mean Corpuscular Hgb Conc. 33.7 g/dL (32.0-36.0); Mean Corpuscular Volume 90.7 fL (80.0-100.0); Monocytes % (auto) 0.5 % (0.0-12.0); Neutrophils % (auto) 7.3 % (37.0-80.0); Nucleated Red Blood Cells % 0.4 %; Red Blood Cells 3.59 10^6/uL (4.0-5.20)
[2017-12-07 05:47] LABS: Lymphocytes % (auto) 90.8 % (10.0-50.0)
[2017-12-07 05:59] LABS: Albumin 1.7 g/dL (3.4-5.0); BUN/Creatinine Ratio 48.7; Bilirubin, Total 0.8 mg/dL (0.2-1.0); Calcium 7.6 mg/dL (8.5-10.1); Potassium 3.5 mmol/L (3.5-5.1); Total Protein 4.8 g/dL (6.4-8.2)
[2017-12-07] MEDS: SODIUM CHLOR 0.9% PF (SALINE LOCK) 10ML VIAL/SYR IV SCH ×3 (06:10→22:12)
[2017-12-07 06:46] LABS: White Blood Cell 0.4 10^3/uL (4.4-10.8)
[2017-12-07] MEDS: MICAFUNGIN SODIUM 100 MG in SODIUM CHL 0.9% 100 ML IV SCH (09:00)
[2017-12-07] MEDS: SODIUM CHLORIDE 0.9% 1,000 ML IV SCH ×2 (09:15→22:13)
[2017-12-07] MEDS: NICOTINE 21MG/24 HR TOPICAL PATCH TD SCH (10:00)
[2017-12-07] MEDS: PANTOPRAZOLE 40 MG/10 ML VIAL IV SCH (10:01)
[2017-12-07] MEDS: LEVOFLOXACIN 750MG 150 ML IV SCH (10:01)
[2017-12-07] MEDS: methylPREDNISolone SOD SUCC 40 MG/ML VL IV SCH ×2 (10:01→22:12)
[2017-12-07] MEDS: ENOXAPARIN SOD 40 MG/0.4 ML SYRINGE SC SCH (10:02)
[2017-12-07] MEDS: ALLOPURINOL 300 MG TAB PO SCH (10:02)
[2017-12-07] MEDS: FILGRASTIM(TBO) 480 MCG/0.8 ML SYRG SC SCH (10:07)
[2017-12-07] MEDS: ACCU-CHEK COMFORT CURVE STRIP VI SCH ×3 (12:45→22:13)
[2017-12-07] MEDS: InsuLIN REG 1unit/0.01ml Soln (100units/ml) SC SCH ×3 (13:01→22:13)
[2017-12-07] MEDS: ACETYLCYSTEINE 10 %(100MG/ML) SOL 4ML NEB SCH ×2 (14:24→22:10)
[2017-12-07] MEDS ORDERED: VANCOMYCIN PER PHARMACY 0 MG IV SCH (14:45)
[2017-12-07] MEDS: VANCOMYCIN 1GM/250ML 250 ML IV SCH (16:15)
[2017-12-07] MEDS: PROPOFOL 100 ML IV SCH (18:06)
[2017-12-08] VITALS (107 sets, daily range): BP systolic 67–169; BP diastolic 33–99
[2017-12-08] MEDS: fentaNYL Drip 2500mCg/250mlNS 250 ML IV SCH ×2 (00:49→20:52)
[2017-12-08] MEDS: PROPOFOL 100 ML IV SCH ×3 (01:23→23:45)
[2017-12-08] MEDS: VANCOMYCIN 1GM/250ML 250 ML IV SCH ×2 (01:46→16:59)
[2017-12-08] MEDS: IPRATROPIUM BROM 0.5 MG/2.5ML INH SOL NEB SCH ×5 (02:00→22:03)
[2017-12-08] MEDS: ALBUTEROL SULF 2.5 MG/0.5ML(0.5%) NEB SOLN NEB SCH ×6 (02:00→22:03)
[2017-12-08 03:56] LABS: Basophils # (auto) 0 uL; Eosinophils # (auto) 0 uL; Hemoglobin 9.9 g/dL (12.2-16.2); Lymphocytes # (auto) 0.2 uL; Mean Corpuscular Hemoglobin 31.5 pg (28.0-32.0); Monocytes # (auto) 0 uL; Neutrophils # (auto) 0 uL
[2017-12-08 03:59] LABS: Eosinophils % (auto) 0.6 % (0.0-7.0); Hematocrit 28.5 % (36.0-46.0); Mean Corpuscular Hgb Conc. 34.7 g/dL (32.0-36.0); Mean Corpuscular Volume 90.6 fL (80.0-100.0); Monocytes % (auto) 1.9 % (0.0-12.0); Neutrophils % (auto) 2.7 % (37.0-80.0); Nucleated Red Blood Cells % 0.4 %; Platelet Count (auto) 32 10^3/uL (140-450); Red Blood Cells 3.15 10^6/uL (4.0-5.20); Red Cell Distribution Width 13.2 % (11.8-14.3)
[2017-12-08 04:11] LABS: Albumin 1.5 g/dL (3.4-5.0); BUN/Creatinine Ratio 54.1; Calcium 7.2 mg/dL (8.5-10.1); Potassium 3.7 mmol/L (3.5-5.1)
[2017-12-08 04:14] LABS: Bilirubin, Total 0.5 mg/dL (0.2-1.0); Total Protein 4.5 g/dL (6.4-8.2)
[2017-12-08 04:19] LABS: Lymphocytes % (auto) 94.8 % (10.0-50.0)
[2017-12-08 05:24] LABS: White Blood Cell 0.3 10^3/uL (4.4-10.8)
[2017-12-08] MEDS: ACETYLCYSTEINE 10 %(100MG/ML) SOL 4ML NEB SCH ×3 (05:36→22:03)
[2017-12-08] MEDS: SODIUM CHLOR 0.9% PF (SALINE LOCK) 10ML VIAL/SYR IV SCH ×3 (06:23→22:00)
[2017-12-08] MEDS: InsuLIN REG 1unit/0.01ml Soln (100units/ml) SC SCH ×4 (07:00→22:00)
[2017-12-08] MEDS: ACCU-CHEK COMFORT CURVE STRIP VI SCH ×4 (07:00→22:00)
[2017-12-08] MEDS: MICAFUNGIN SODIUM 100 MG in SODIUM CHL 0.9% 100 ML IV SCH (08:24)
[2017-12-08] MEDS: NICOTINE 21MG/24 HR TOPICAL PATCH TD SCH (10:00)
[2017-12-08] MEDS: ENOXAPARIN SOD 40 MG/0.4 ML SYRINGE SC SCH (10:00)
[2017-12-08] MEDS: LEVOFLOXACIN 750MG 150 ML IV SCH (10:01)
[2017-12-08] MEDS: methylPREDNISolone SOD SUCC 40 MG/ML VL IV SCH (10:01)
[2017-12-08] MEDS: ALLOPURINOL 300 MG TAB PO SCH (10:01)
[2017-12-08] MEDS: FAMOTIDINE (10MG/ML) 2ML VL IV SCH ×2 (10:01→21:59)
[2017-12-08] MEDS: FILGRASTIM(TBO) 480 MCG/0.8 ML SYRG SC SCH (10:03)
[2017-12-08] MEDS: MIDAZOLAM DRIP 50 mg/50mL 50 ML IV SCH ×2 (10:16→14:45)
[2017-12-08] MEDS ORDERED: FUROSEMIDE 20 MG/2 ML VIAL IV ONE (11:15)
[2017-12-08] MEDS: SODIUM CHLORIDE 0.9% 1,000 ML IV SCH (14:50)
[2017-12-09] VITALS (103 sets, daily range): BP systolic 88–143; BP diastolic 44–71
[2017-12-09] MEDS: IPRATROPIUM BROM 0.5 MG/2.5ML INH SOL NEB SCH ×6 (02:07→22:03)
[2017-12-09] MEDS: ALBUTEROL SULF 2.5 MG/0.5ML(0.5%) NEB SOLN NEB SCH ×6 (02:07→22:03)
[2017-12-09 03:56] LABS: Hematocrit 26.5 % (36.0-46.0); Mean Corpuscular Hemoglobin 30.9 pg (28.0-32.0); Mean Corpuscular Hgb Conc. 33.9 g/dL (32.0-36.0); Mean Corpuscular Volume 91.2 fL (80.0-100.0); Platelet Count (auto) 42 10^3/uL (140-450); Red Blood Cells 2.91 10^6/uL (4.0-5.20); Red Cell Distribution Width 13.3 % (11.8-14.3)
[2017-12-09] MEDS: VANCOMYCIN 1GM/250ML 250 ML IV SCH ×3 (04:00→22:05)
[2017-12-09 04:02] LABS: White Blood Cell 0.4 10^3/uL (4.4-10.8)
[2017-12-09 04:03] LABS: Basophils % (manual) 0 (0.0-2.0); Blast Cells 0; Eosinophils % (manual) 0 (0-7); Metamyelocytes % 0; Myelocytes % 0; Promyelocytes % 0; Reactive Lymphocytes 0
[2017-12-09] MEDS: SODIUM CHLORIDE 0.9% 1,000 ML IV SCH ×4 (04:09→22:06)
[2017-12-09 05:05] LABS: Albumin 1.6 g/dL (3.4-5.0); BUN/Creatinine Ratio 58.3; Calcium 7.1 mg/dL (8.5-10.1); Magnesium 2.2 mg/dL (1.6-2.6)
[2017-12-09 05:08] LABS: Bilirubin, Total 0.3 mg/dL (0.2-1.0); Total Protein 4.6 g/dL (6.4-8.2)
[2017-12-09 05:25] LABS: Uric Acid 0.8 mg/dL (2.6-6.0)
[2017-12-09] MEDS: SODIUM CHLOR 0.9% PF (SALINE LOCK) 10ML VIAL/SYR IV SCH ×3 (06:24→22:05)
[2017-12-09] MEDS: InsuLIN REG 1unit/0.01ml Soln (100units/ml) SC SCH ×4 (06:24→22:21)
[2017-12-09] MEDS: ACCU-CHEK COMFORT CURVE STRIP VI SCH ×4 (06:25→22:05)
[2017-12-09] MEDS: ACETYLCYSTEINE 10 %(100MG/ML) SOL 4ML NEB SCH ×3 (06:26→22:03)
[2017-12-09] MEDS: PROPOFOL 100 ML IV SCH ×2 (06:45→22:07)
[2017-12-09] MEDS: MIDAZOLAM DRIP 50 mg/50mL 50 ML IV SCH ×2 (06:45→22:07)
[2017-12-09 07:34] LABS: Band Neutrophils % (manual) 0; Lymphocytes % (manual) 95 (10.0-50.0); Monocytes % (manual) 3 (0-12)
[2017-12-09] MEDS: MICAFUNGIN SODIUM 100 MG in SODIUM CHL 0.9% 100 ML IV SCH (09:20)
[2017-12-09] MEDS: ENOXAPARIN SOD 40 MG/0.4 ML SYRINGE SC SCH (09:28)
[2017-12-09] MEDS: NICOTINE 21MG/24 HR TOPICAL PATCH TD SCH (09:29)
[2017-12-09] MEDS: LEVOFLOXACIN 750MG 150 ML IV SCH (10:54)
[2017-12-09] MEDS: methylPREDNISolone SOD SUCC 40 MG/ML VL IV SCH (10:54)
[2017-12-09] MEDS: FAMOTIDINE (10MG/ML) 2ML VL IV SCH ×2 (10:54→22:05)
[2017-12-09] MEDS: ALLOPURINOL 300 MG TAB PO SCH (11:18)
[2017-12-09] MEDS: FILGRASTIM(TBO) 480 MCG/0.8 ML SYRG SC SCH (11:18)
[2017-12-10] VITALS (102 sets, daily range): BP systolic 73–182; BP diastolic 33–100
[2017-12-10] MEDS: IPRATROPIUM BROM 0.5 MG/2.5ML INH SOL NEB SCH ×5 (02:19→22:08)
[2017-12-10] MEDS: ALBUTEROL SULF 2.5 MG/0.5ML(0.5%) NEB SOLN NEB SCH ×5 (02:19→22:08)
[2017-12-10] MEDS: MIDAZOLAM DRIP 50 mg/50mL 50 ML IV SCH ×4 (02:38→17:01)
[2017-12-10] MEDS: SODIUM CHLOR 0.9% PF (SALINE LOCK) 10ML VIAL/SYR IV SCH ×3 (05:01→22:00)
[2017-12-10] MEDS: PROPOFOL 100 ML IV SCH ×4 (05:01→17:02)
[2017-12-10] MEDS: InsuLIN REG 1unit/0.01ml Soln (100units/ml) SC SCH ×4 (06:23→22:00)
[2017-12-10] MEDS: ACCU-CHEK COMFORT CURVE STRIP VI SCH ×4 (06:23→22:00)
[2017-12-10] MEDS: ACETYLCYSTEINE 10 %(100MG/ML) SOL 4ML NEB SCH ×3 (06:30→22:09)
[2017-12-10 06:36] LABS: Hemoglobin 9.9 g/dL (12.2-16.2); Red Cell Distribution Width 13.1 % (11.8-14.3)
[2017-12-10 06:40] LABS: Hematocrit 29.4 % (36.0-46.0); Mean Corpuscular Hemoglobin 30.6 pg (28.0-32.0); Mean Corpuscular Hgb Conc. 33.7 g/dL (32.0-36.0); Platelet Count (auto) 38 10^3/uL (140-450); Red Blood Cells 3.23 10^6/uL (4.0-5.20)
[2017-12-10 06:44] LABS: White Blood Cell 0.9 10^3/uL (4.4-10.8)
[2017-12-10 06:45] LABS: Basophils % (manual) 0 (0.0-2.0); Blast Cells 0; Eosinophils % (manual) 0 (0-7); Metamyelocytes % 0; Myelocytes % 0; Promyelocytes % 0
[2017-12-10 07:07] LABS: Albumin 1.8 g/dL (3.4-5.0); BUN/Creatinine Ratio 64.1; Bilirubin, Total 0.3 mg/dL (0.2-1.0); Potassium 4.3 mmol/L (3.5-5.1); Total Protein 4.9 g/dL (6.4-8.2); Uric Acid 0.6 mg/dL (2.6-6.0)
[2017-12-10] MEDS: fentaNYL Drip 2500mCg/250mlNS 250 ML IV SCH (07:53)
[2017-12-10 08:39] LABS: Band Neutrophils % (manual) 2; Lymphocytes % (manual) 62 (10.0-50.0); Monocytes % (manual) 10 (0-12); Reactive Lymphocytes 8
[2017-12-10] MEDS ORDERED: MICAFUNGIN SODIUM 100 MG in SODIUM CHL 0.9% 100 ML IV SCH (09:00)
[2017-12-10] MEDS ORDERED: ENOXAPARIN SOD 40 MG/0.4 ML SYRINGE SC SCH (10:00)
[2017-12-10] MEDS: VANCOMYCIN 1GM/250ML 250 ML IV SCH (10:25)
[2017-12-10] MEDS: ALLOPURINOL 300 MG TAB PO SCH (10:27)
[2017-12-10] MEDS: NICOTINE 21MG/24 HR TOPICAL PATCH TD SCH (10:28)
[2017-12-10] MEDS: FAMOTIDINE (10MG/ML) 2ML VL IV SCH ×2 (10:28→22:00)
[2017-12-10] MEDS: methylPREDNISolone SOD SUCC 40 MG/ML VL IV SCH (10:28)
[2017-12-10] MEDS: FILGRASTIM(TBO) 480 MCG/0.8 ML SYRG SC SCH (10:29)
[2017-12-10] MEDS: LEVOFLOXACIN 750MG 150 ML IV SCH (12:23)
[2017-12-10] MEDS: SODIUM CHLORIDE 0.9% 1,000 ML IV SCH (23:03)
[2017-12-11] VITALS (90 sets, daily range): BP systolic 0–189; BP diastolic 0–109
[2017-12-11] MEDS: fentaNYL Drip 2500mCg/250mlNS 250 ML IV SCH ×2 (00:37→18:14)
[2017-12-11] MEDS: VANCOMYCIN 1GM/250ML 250 ML IV SCH ×2 (01:57→09:59)
[2017-12-11] MEDS: IPRATROPIUM BROM 0.5 MG/2.5ML INH SOL NEB SCH ×5 (02:25→18:00)
[2017-12-11] MEDS: ALBUTEROL SULF 2.5 MG/0.5ML(0.5%) NEB SOLN NEB SCH ×5 (02:25→18:00)
[2017-12-11 04:03] LABS: Hematocrit 24.1 % (36.0-46.0); Hemoglobin 8.1 g/dL (12.2-16.2); Platelet Count (auto) 40 10^3/uL (140-450); Red Blood Cells 2.67 10^6/uL (4.0-5.20)
[2017-12-11 04:05] LABS: Mean Corpuscular Hemoglobin 30.4 pg (28.0-32.0); Mean Corpuscular Hgb Conc. 33.6 g/dL (32.0-36.0); Mean Corpuscular Volume 90.5 fL (80.0-100.0); Red Cell Distribution Width 13.1 % (11.8-14.3); White Blood Cell 3.1 10^3/uL (4.4-10.8)
[2017-12-11 04:19] LABS: Albumin 1.4 g/dL (3.4-5.0); Bilirubin, Total 0.3 mg/dL (0.2-1.0); Calcium 7.7 mg/dL (8.5-10.1); Potassium 4.1 mmol/L (3.5-5.1); Total Protein 4.1 g/dL (6.4-8.2)
[2017-12-11 04:21] LABS: Basophils % (manual) 0 (0.0-2.0); Eosinophils % (manual) 0 (0-7); Metamyelocytes % 0; Myelocytes % 0; Promyelocytes % 0; Reactive Lymphocytes 0
[2017-12-11 05:02] LABS: Band Neutrophils % (manual) 23; Blast Cells 1; Lymphocytes % (manual) 34 (10.0-50.0); Monocytes % (manual) 8 (0-12)
[2017-12-11] MEDS: ACETYLCYSTEINE 10 %(100MG/ML) SOL 4ML NEB SCH ×2 (05:56→13:50)
[2017-12-11] MEDS: SODIUM CHLOR 0.9% PF (SALINE LOCK) 10ML VIAL/SYR IV SCH ×2 (06:00→15:07)
[2017-12-11] MEDS: InsuLIN REG 1unit/0.01ml Soln (100units/ml) SC SCH ×3 (07:00→17:00)
[2017-12-11] MEDS: ACCU-CHEK COMFORT CURVE STRIP VI SCH ×3 (07:07→17:00)
[2017-12-11] MEDS ORDERED: MICAFUNGIN SODIUM 100 MG in D5W 5% 100 ML IV SCH (09:00)
[2017-12-11] MEDS: MIDAZOLAM DRIP 50 mg/50mL 50 ML IV SCH ×3 (09:12→16:52)
[2017-12-11] MEDS: PROPOFOL 100 ML IV SCH ×3 (09:12→18:15)
[2017-12-11] MEDS: FAMOTIDINE (10MG/ML) 2ML VL IV SCH (09:58)
[2017-12-11] MEDS: NICOTINE 21MG/24 HR TOPICAL PATCH TD SCH (09:59)
[2017-12-11] MEDS: ALLOPURINOL 300 MG TAB PO SCH (09:59)
[2017-12-11] MEDS: FILGRASTIM(TBO) 480 MCG/0.8 ML SYRG SC SCH (10:00)
[2017-12-11] MEDS ORDERED: methylPREDNISolone SOD SUCC 40 MG/ML VL IV SCH (10:00)
[2017-12-11] MEDS: LEVOFLOXACIN 750MG 150 ML IV SCH (11:32)
[2017-12-11] MEDS: SODIUM CHLORIDE 0.9% 1,000 ML IV SCH (13:21)
[2017-12-11] MEDS ORDERED: LORazepam 2MG/ML-1ML VIAL IV PRN (15:00)
[2017-12-11] MEDS ORDERED: MORPHINE SULF INJ 2 MG/ML SYRINGE 1ML IV PRN (15:00)
== END 2017-12-11 20:42 | disposition expired | DRG 130 ==
LOC: EDBD 07:40 → ER 07:43 → TELE 07:44 → TELE-CENTR 14:48 → ICU WEST 11-25 12:24
PROVIDERS: ADMIT Internal Medicine; ATTEND Internal Medicine
PROC: 0B988ZX Drainage of Left Upper Lobe Bronchus, Via Natural or Artificial Opening Endoscopic, Diagnostic (ICD-10-PCS; 2017-11-19)
PROC: 0BBG8ZX Excision of Left Upper Lung Lobe, Via Natural or Artificial Opening Endoscopic, Diagnostic (ICD-10-PCS; principal; 2017-11-19 10:42)
PROC: 0WBC3ZX Excision of Mediastinum, Percutaneous Approach, Diagnostic (ICD-10-PCS; 2017-11-22)
PROC: 5A1955Z Respiratory Ventilation, Greater than 96 Consecutive Hours (ICD-10-PCS; 2017-11-25)
PROC: 0BH17EZ Insertion of Endotracheal Airway into Trachea, Via Natural or Artificial Opening (ICD-10-PCS; 2017-11-25)
PROC: 02HV33Z Insertion of Infusion Device into Superior Vena Cava, Percutaneous Approach (ICD-10-PCS; 2017-11-28)
PROC: 30233R1 Transfusion of Nonautologous Platelets into Peripheral Vein, Percutaneous Approach (ICD-10-PCS; 2017-12-08)
DX: C38.1 Malignant neoplasm of anterior mediastinum (principal); N17.0 Acute kidney failure with tubular necrosis; A41.9 Sepsis, unspecified organism; E43 Unspecified severe protein-calorie malnutrition; J96.20 Acute and chronic respiratory failure, unspecified whether with hypoxia or hypercapnia; J18.9 Pneumonia, unspecified organism; J90 Pleural effusion, not elsewhere classified; E87.3 Alkalosis; C90.00 Multiple myeloma not having achieved remission; J44.0 Chronic obstructive pulmonary disease with (acute) lower respiratory infection; B37.0 Candidal stomatitis; I31.3 Pericardial effusion (noninflammatory); J20.9 Acute bronchitis, unspecified; J44.1 Chronic obstructive pulmonary disease with (acute) exacerbation; K21.9 Gastro-esophageal reflux disease without esophagitis; N18.2 Chronic kidney disease, stage 2 (mild); I12.9 Hypertensive chronic kidney disease with stage 1 through stage 4 chronic kidney disease, or unspecified chronic kidney disease; B37.49 Other urogenital candidiasis; D68.9 Coagulation defect, unspecified; D70.1 Agranulocytosis secondary to cancer chemotherapy; E22.2 Syndrome of inappropriate secretion of antidiuretic hormone; F17.210 Nicotine dependence, cigarettes, uncomplicated; J45.901 Unspecified asthma with (acute) exacerbation; M19.90 Unspecified osteoarthritis, unspecified site; R13.10 Dysphagia, unspecified; T38.0X5A Adverse effect of glucocorticoids and synthetic analogues, initial encounter; T45.1X5A Adverse effect of antineoplastic and immunosuppressive drugs, initial encounter; Z51.5 Encounter for palliative care; Z16.24 Resistance to multiple antibiotics; Z90.710 Acquired absence of both cervix and uterus; Z79.899 Other long term (current) drug therapy; Z85.820 Personal history of malignant melanoma of skin; Z68.26 Body mass index [BMI] 26.0-26.9, adult
CPT/HCPCS: 10022; 36415; 36569; 36600; 70491; 71045; 71250; 71260; 74177; 76604; 77012; 80048; 80053; 80202; 81001; 82140; 82805; 82962; 83605; 83735; 83880; 84439; 84443; 84484; 84550; 85007; 85025; 85027; 85379; 85610; 85730; 86850; 86900; 86901; 87040; 87070; 87077; 87081; 87086; 87186; 87205; 87493; 92610; 93005; 93306; 93971; 94002; 94003; 94640; 94660; 96374; 96375; C9113; J0171; J0330; J1100; J1447; J1815; J1885; J1956; J2248; J2250; J2405; J2543; J2704; J3490; J7060; J9045